=== PATIENT | female | born 1985 | race Caucasian/White ===

== ENCOUNTER 2020-11-06 11:51 | Outpatient (CLI) | payer BC, SELFPAY ==
--- NOTE | ~2020-11-06 | XR_ITS ---
XR chest 2V DATE: 11/06/2020 12:11 INDICATION: Shortness of breath. History of Covid-positive diagnosis. TECHNIQUE: PA and lateral views with gonadal shielding COMPARISON: 10/26/2018 two-view chest FINDINGS: Normal heart size. No hilar or mediastinal enlargement. No pulmonary infiltrate or consolid ation, pleural effusion or pulmonary vascular congestion or pneumothorax. Included skeletal structures are unremarkable. IMPRESSION: No active cardiopulmonary disease Reviewed, dictated and finalized at location A. [employer]
== END 2020-11-06 11:52 | disposition home or self-care (01) ==
LOC: ANHIMG 11:58
PROVIDERS: PCP Internal Medicine; Visit Provider Nurse Practitioner
DX: R06.02 Shortness of breath (principal)
CPT/HCPCS: 71046

== ENCOUNTER 2021-03-12 01:40 | Day surgery (SDC) | payer BC, SELFPAY ==
[2021-03-11 09:50] VITALS: BMI 29.9
--- NOTE | 2021-03-12 11:44 | PM.IMHP ---
H&P: HPI History of Present Illness Date/Time: 03/12/21 11:44 35 y/o with inappropriately rising hcg levels, cramping and bleeding. Last hcg was 92.5. Ultrasound exam showed an empty uterus and normal-appearing adnexa. Chief Complaint: Here for D&C Review of Systems Review of Systems: All systems reviewed & are unremarkable except as noted in HPI and below PMFSH Past Medical History Medical History Anxiety Depression Surgical History Surgical History (Updated 03/12/21 @ 12:43 by Virgil Arreaga MD) Hx of tonsillectomy Family History Family History Mother Patient's mother is in good health Social History Social History Smoking status: Never smoker Alcohol intake: never Substance use: never Substance use type: does not use Living arrangements: with family Spiritual care concerns: No Meds Home Medications and Allergies Home Medications Medication Instructions Recorded Confirmed Type sertraline 50 mg tablet 50 mg PO DAILY 10/16/20 03/12/21 History PNV [id number]-[id number]-mraod-[id number] oil 1 tablet PO DAILY 03/11/21 03/12/21 History [ with DHA-Folic Acid] Allergies Allergy/AdvReac Type Severity Reaction Status Date / Time cephalexin Allergy Unknown unknown Verified 03/12/21 13:13 erythromycin base Allergy Unknown unknown Verified 03/12/21 13:13 sulfamethizole Allergy Unknown unknown Verified 03/12/21 13:13 trimethoprim Allergy Unknown unknown Verified 03/12/21 13:13 Exam Const: Orientation/consciousness: patient oriented x3 Other: Well-developed, well-nourished female in no acute distress. Neck: Thyroid: thyroid normal Lymphatic: no lymphadenopathy noted (in neck, axilla or inguinal nodes) Resp: Effort & Inspection: normal respiratory effort Auscultation: clear to auscultation bilaterally Cardio: Rate: regular rate Rhythm: regular rhythm Heart sounds: S1 normal heart sound present and S2 normal heart sound present GI: Other: ABD: Soft, nontender, nondistended. No guarding or rebound tenderness. No hepatosplenomegaly. : General: Yes no CVA tenderness Other: External genitalia: normal female hair distribution, without lesion. Urethral meatus: no lesion, non prolapsed. Bladder: no mass, nontender Vagina: well-estrogenized, without lesion or discharge. No cystocele or rectocele. Cervix: no lesion or discharge. Uterus: small, anteverted, freely mobile, nontender Adnexa: no mass or tenderness. Anus/perineum: no lesions, nontender Back/Spine/Pelvis: Back: no CVA tenderness Skin: General skin exam: normal color and no rashes or lesions noted Neuro: General: patient oriented x3 Extrem: Other: Extremities: nontender with no edema Psych: Mental Status: mental status grossly normal Affect: normal affect Assessment and Plan Assessment and plan (1) Incomplete : Code(s): O03.4 - Incomplete spontaneous without complication Status: Acute Assessment and Plan: A: Incomplete spontaneous . P: Offered continued expectant management vs. medical vs. surgical management. She opts for the last. Specifically, offered dilation and suction curettage. She understands risks of surgery to include risks of anesthesia, risks of pain, infection, bleeding, blood products, thromboembolic phenomena and damage to adjacent structures such as bowel, bladder, ureters, blood vessels and nerves. She understands all these risks and elects to proceed with surgery.
[2021-03-12 12:01] VITALS: BP 119/78; PULSE 99; TEMP 36.8; O2SAT 100
[2021-03-12] MEDS: LACTATED RINGERS 1,000 ML 30 ML IV CONT (12:20)
--- NOTE | 2021-03-12 12:40 | P.PNAN_ITS ---
Anes - Initial Pre Proc Eval Procedure: Operation Date: 03/12/21 13:30 Proposed Procedures p Suction Dilatation and Curettage - Jason Padilla MD Date/Time: 03/12/21 12:40 Surgeon: Jason Padilla MD Pre Op Diagnosis: missed ab Patient Data Age: 35 Gender: F Height: 5 ft 4 in Weight: 79.3 kg Allergies Allergy/AdvReac Type Severity Reaction Status Date / Time cephalexin Allergy Unknown unknown Verified 03/11/21 10:03 erythromycin base Allergy Unknown unknown Verified 03/11/21 10:03 sulfamethizole Allergy Unknown unknown Verified 03/11/21 10:03 trimethoprim Allergy Unknown unknown Verified 03/11/21 10:03 Home Medications Medication Instructions Recorded Confirmed Type sertraline 50 mg tablet 50 mg PO DAILY 10/16/20 03/11/21 History PNV 631-[id number]-tduju-3-fish oil 1 tablet PO DAILY 03/11/21 03/11/21 History [ with DHA-Folic Acid] Patient hx anesthesia problems: none Family hx anesthesia problems: none PMFSH Past Medical History Medical History Anxiety Depression Surgical History Surgical History (Updated 03/12/21 @ 12:43 by Virgil Arreaga MD) Hx of tonsillectomy Family History Family History Mother Patient's mother is in good health Social History Social History Smoking status: Never smoker Alcohol intake: never Substance use: never Substance use type: does not use Living arrangements: with family Spiritual care concerns: No Anes - Eval Final PreProcedure Day of Procedure 03/12/21 12:40 Patient weight: obese Heart: regular rate and rhythm Lungs: clear to auscultation Airway: Mallampati scale class II Neurological: alert and oriented Last oral intake: >/= 8 hours ASA classification: II Anesthetic plan: proceed Anesthesia type and monitoring: general GIVS and standard monitoring Informed Consent: The patient's anesthetic plan and its attendant risks and be nefits were discussed with the patient/family/POA. Questions were solicited and answers provided to the satisfaction of the patient/family/POA.
--- NOTE | 2021-03-12 13:40 | WPDHPUPDATE1 ---
History and Physical Update Update Date/Time: 03/12/21 13:40 History and Physical has been reviewed, including an updated exam of the patient. There are NO changes in the patient's condition. Risks, benefits, and alternatives have been discussed and questions answered. Patient agrees to proceed with procedure.
--- NOTE | 2021-03-12 14:05 | PM.OP ---
Procedure Note - Brief Procedure Note - Brief Date of procedure: 03/12/21 Pre-op diagnosis: missed ab Incomplete SAB Post-op diagnosis: same Procedure performed: Dilation and suction curettage Description of procedure: The patient was taken to the operating room where she was prepared and draped in the usual sterile fashion in the dorsal lithotomy position. The bladder was drained with a red rubber catheter. A sterile speculum was placed into the vagina. The anterior lip of the cervix was grasped with a single-tooth tenaculum. Ten mL of 1% lidocaine was administered in a paracervical block. The cervix was gently dilated using Hegar dilators until an 8mm dilator could be passed. The 8mm curved tip suction curette was advanced. Suction curettage was performed and scant tissue was aspirated. Sharp curettage was then performed until a good uterine cry was noted. A final pass with the suction curette was made. The tenaculum was removed. Hemostasis was excellent. Sponge, lap, needle and instrument counts were correct. The patient was taken to the recovery room in stable condition. I was present and scrubbed for the entire procedure. Anesthesia: MAC and local (1% lidocaine paracervical block) Surgeon: Jason Padilla MD Estimated blood loss (mL): 20 Drains: No Packing: No Pathology: yes (Endometrial curettings) Complications: None Condition: stable Disposition: PACU Findings: Scant endometrial curettings.
[2021-03-12] MEDS: KETOROLAC 15 MG/ML VIAL (*BKC) IV PUSH (14:08)
[2021-03-12 14:09] VITALS: BP 100/65; PULSE 83; RESP 18; O2SAT 99
--- NOTE | 2021-03-12 14:10 | PM.PROC ---
Procedure Note - Detailed Date of procedure: 03/12/21 Pre-op diagnosis: missed ab Incomplete SAB Post-op diagnosis: same Procedure performed: Dilation and suction curettage Description of procedure: The patient was taken to the operating room where she was prepared and draped in the usual sterile fashion in the dorsal lithotomy position. The bladder was drained with a red rubber catheter. A sterile speculum was placed into the vagina. The anterior lip of the cervix was grasped with a single-tooth tenaculum. Ten mL of 1% lidocaine was administered in a paracervical block. The cervix was gently dilated using Hegar dilators until an 8mm dilator could be passed. The 8mm curved tip suction curette was advanced. Suction curettage was performed and scant tissue was aspirated. Sharp curettage was then performed until a good uterine cry was noted. A final pass with the suction curette was made. The tenaculum was removed. Hemostasis was excellent. Sponge, lap, needle and instrument counts were correct. The patient was taken to the recovery room in stable condition. I was present and scrubbed for the entire procedure. Implants: None Anesthesia: MAC and local (1% lidocaine paracervical block) Surgeon: Jason Padilla MD Estimated blood loss (mL): 20 Drains: No Packing: No Pathology: yes (endometrial curettings) Complications: None Condition: stable Disposition: PACU Findings: Scant endometrial curettings
[2021-03-12 14:30] VITALS: BP 123/89; PULSE 80; RESP 20
[2021-03-12 15:00] VITALS: BP 124/71; PULSE 64; RESP 20
[2021-03-12] MEDS: METHOTREXATE SODIUM/PF 50 MG/2 ML VIAL 46 MG IM ×2 (15:16)
[2021-03-12 15:30] VITALS: BP 124/75; PULSE 72; RESP 20
== END 2021-03-12 15:40 | disposition home or self-care (01) ==
PROVIDERS: PCP Internal Medicine; Visit Provider Obstetrics & Gynecology
PROC: (CPT 59820; principal; 2021-03-12 13:30)
DX: O02.1 Missed abortion (principal); F41.8 Other specified anxiety disorders
CPT/HCPCS: 59820; 36415; 85461; 88305; A9270; J0131; J1885; J2250; J2704; J3010; J7120; J9260

== ENCOUNTER 2021-07-31 16:00 | Outpatient (CLI) | payer BC, SELFPAY | END 2021-07-31 16:01 | disposition home or self-care (01) | LOC: ANHLAB 16:03 | PROVIDERS: PCP Internal Medicine; Visit Provider Nurse Practitioner | DX: J02.9 Acute pharyngitis, unspecified (principal) | CPT/HCPCS: 87081; 87880 ==

== ENCOUNTER 2022-05-13 16:50 | Outpatient (RCR) | payer BC, SELFPAY ==
[2022-05-13 18:44] VITALS: BP 125/71; PULSE 98
== END 2022-08-11 23:59 | disposition home or self-care (01) ==
LOC: ANHOBOP 16:50
PROVIDERS: PCP Internal Medicine; Visit Provider Obstetrics & Gynecology
DX: O26.893 Other specified pregnancy related conditions, third trimester (principal); R10.9 Unspecified abdominal pain; Z3A.30 30 weeks gestation of pregnancy
CPT/HCPCS: 59025

== ENCOUNTER 2022-05-27 09:41 | Outpatient (CLI) | payer BC, SELFPAY ==
--- NOTE | 2022-05-27 | ECG_ITS ---
Measurements Intervals [place] Rate: 79 P: -14 WA: 147 QRS: 63 QRSD: 87 T: 36 QT: 376 QTc: 433 Interpretive Statements SINUS RHYTHM NO PREVIOUS ECG AVAILABLE FOR COMPARISON Electronically Signed On 05-27-2022 10:58:02 CDT by Goyo De La Fuente M.D.
== END 2022-05-27 09:42 | disposition home or self-care (01) ==
PROVIDERS: PCP Internal Medicine; Visit Provider Obstetrics & Gynecology
DX: R55 Syncope and collapse (principal)
CPT/HCPCS: 93005

== ENCOUNTER 2022-06-05 16:02 | Observation (INO) | payer BC, SELFPAY ==
[2022-06-05] VITALS (31 sets, daily range): BP systolic 122–140; BP diastolic 74–86; PULSE 100–112; O2SAT 95–100; BMI 34.8
--- NOTE | 2022-06-05 16:46 | OBADM ---
This patient, Liz Mary, admitted to the OB room 113 for observation. Patient/family oriented to hospital policies and general routines including ID bracelet, bed and alarms, visiting hours, pain management, procedures, bathroom and other care routines, personal items, smoking policy, room service/diet, and visiting hours. Patient/Family are encouraged to report perceived risks to care and to ask questions if they do not understand what they are told or what they should do.
[2022-06-05 18:03] LABS: Appearance Urine Clear (Clear); Bilirubin Urine Negative (Negative); Color Urine Yellow (Yellow); Glucose Urine UA Negative (Negative); Ketones Urine Negative (Negative); Leukocyte Esterase Ur Negative LEU/UL (Negative); Nitrate Urine Negative (Negative); Protein Urine Trace mg/dL (Negative); Specific Grav Ur >= 1.030 (1.001-1.035); Urobilinogen Urine 0.2 mg/dL (<2.0)
[2022-06-05 18:04] LABS: Bacteria Urine Trace /hpf; Mucus Urine Few /lpf; Squamous Epithelial Cell Urine Few /hpf (Few)
[2022-06-05 18:27] LABS: Add Urine Microscopic? YES; Blood Urine Trace-Intact (Negative)
--- NOTE | 2022-07-02 15:00 | PM.OBTRLD ---
OB - Triage/Final Diagnosis Visit Information Comments/Additional reasons for admission: I have assessed the risk for this patient, Liz Mary, and determined that she would benefit from observation care. Evaluation Laboratory results: Laboratory Tests 06/05/22 17:28 Urine Color Yellow Urine Appearance Clear Urine pH 6.0 Ur Specific [place] >= 1.030 Urine Protein Trace Urine Glucose (UA) Negative Urine Ketones Negative Ur Blood (Man) Trace-intact Urine Nitrate Negative Urine Bilirubin Negative Urine Urobilinogen 0.2 Leukocyte Esterase Rfl Negative Urine RBC 3-5 H Urine WBC 7-9 H Ur Squamous Epith Cells Few Urine Bacteria Trace Urine Mucus Few H Final Diagnosis (1) Pre-syncope: Code(s): R55 - Syncope and collapse Status: Acute
== END 2022-06-05 19:04 | disposition home or self-care (01) ==
PROVIDERS: Admitting Provider Obstetrics & Gynecology; PCP Internal Medicine; Visit Provider Obstetrics & Gynecology
DX: O26.893 Other specified pregnancy related conditions, third trimester (principal); Z3A.33 33 weeks gestation of pregnancy; R55 Syncope and collapse
CPT/HCPCS: 81001; 87086; G0378; G0379

== ENCOUNTER 2022-06-15 22:45 | Observation (INO) | payer BC, SELFPAY ==
--- NOTE | 2022-06-15 22:45 | OBADM ---
This patient, Liz Mary, admitted to the OB room OB Post 115 for observation. Patient/family oriented to hospital policies and general routines including ID bracelet, bed and alarms, visiting hours, pain management, procedures, bathroom and other care routines, personal items, smoking policy, room service/diet, and visiting hours. Patient/Family are encouraged to report perceived risks to care and to ask questions if they do not understand what they are told or what they should do.
[2022-06-15 23:01] VITALS: BP 140/84; PULSE 97; TEMP 36.8
--- NOTE | 2022-06-15 23:09 | PC.NURSE ---
Updated Dr. Padilla on patient arrival to OB unit. Patient states she starting having contractions 2 hours prior to arrival at hospital. History of delivery x2. Contractions palpate mild. FHT reactive. VSS. Orders received.
[2022-06-15 23:15] VITALS: BP 145/81; PULSE 104
[2022-06-15] MEDS: NIFEdipine 10 MG CAPSULE (23:25)
[2022-06-15 23:30] VITALS: BP 123/70; PULSE 103
[2022-06-15 23:39] VITALS: BMI 34.8
[2022-06-15 23:45] VITALS: BP 103/48; PULSE 112
--- NOTE | 2022-06-16 00:35 | PC.NURSE ---
Updated Dr. Padilla on patient continued contractions q2-5min. Contractions palpated mild. Patient reports that pain has decreased since medication was given, but states she is still able to feel contractions. FHT reactive. VSS. Order received.
[2022-06-16] MEDS: DEXTROSE 5%/LACTATED RINGERS 1,000 ML 999 ML IV CONT (00:54)
[2022-06-16] MEDS: BETAMETHASONE SOD PHOS/ACETATE 30 MG/5 ML VIAL 12 MG IM (00:55)
--- NOTE | 2022-06-16 00:55 | PC.NURSE ---
Plan of care discussed with patient. Patient educated on [place] prior to administering. Patient agrees to plan of care.
[2022-06-16 01:13] LABS: Appearance Urine Clear (Clear); Bilirubin Urine Negative (Negative); Blood Urine Negative (Negative); Glucose Urine UA Negative (Negative); Ketones Urine Negative (Negative); Leukocyte Esterase Ur Trace LEU/UL (Negative); Nitrate Urine Negative (Negative); Protein Urine Negative (Negative); Urobilinogen Urine 0.2 mg/dL (<2.0)
[2022-06-16 01:17] LABS: Add Urine Microscopic? YES; Color Urine Light Yellow (Yellow)
[2022-06-16 01:19] LABS: Bacteria Urine Trace /hpf; RBC Urine 0-2 /hpf (0-2); Squamous Epithelial Cell Urine Occasional /hpf (Few); WBC Urine 0-3 /hpf
[2022-06-16 02:22] VITALS: TEMP 36.6
--- NOTE | 2022-07-08 23:56 | PM.OBTRLD ---
OB - Triage/Final Diagnosis Visit Information Comments/Additional reasons for admission: I have assessed the risk for this patient, Liz Mary, and determined that she would benefit from observation care. Evaluation Laboratory results: Laboratory Tests 06/16/22 01:00 Urine Color Light yellow Urine Appearance Clear Urine pH 7.0 Ur Specific [place] 1.010 Urine Protein Negative Urine Glucose (UA) Negative Urine Ketones Negative Ur Blood (Man) Negative Urine Nitrate Negative Urine Bilirubin Negative Urine Urobilinogen 0.2 Leukocyte Esterase Rfl Trace H Urine RBC 0-2 Urine WBC 0-3 Ur Squamous Epith Cells Occasional Urine Bacteria Trace Final Diagnosis (1) False labor: Code(s): O47.9 - False labor, unspecified Status: Acute
== END 2022-06-16 03:14 | disposition home or self-care (01) ==
PROVIDERS: Admitting Provider Obstetrics & Gynecology; PCP Internal Medicine; Visit Provider Obstetrics & Gynecology
DX: O47.03 False labor before 37 completed weeks of gestation, third trimester (principal); Z3A.34 34 weeks gestation of pregnancy
CPT/HCPCS: 81001; 96372; A9270; G0378; G0379; J0702; J7121

== ENCOUNTER 2022-06-17 11:09 | Outpatient (CLI) | payer BC, SELFPAY ==
[2022-06-17] MEDS: BETAMETHASONE SOD PHOS/ACETATE 30 MG/5 ML VIAL 12 MG IM (11:22)
== END 2022-06-17 11:10 | disposition home or self-care (01) ==
LOC: ANHOBOP 11:14
PROVIDERS: PCP Internal Medicine; Visit Provider Obstetrics & Gynecology
DX: Z34.90 Encounter for supervision of normal pregnancy, unspecified, unspecified trimester (principal); Z3A.00 Weeks of gestation of pregnancy not specified
CPT/HCPCS: 96372; J0702

== ENCOUNTER 2022-06-23 18:13 | Observation (INO) | payer BC, SELFPAY ==
--- NOTE | 2022-06-23 18:13 | OBADM ---
This patient, Liz Mary, admitted to the OB room OB Post 117 for observation. Patient/family oriented to hospital policies and general routines including ID bracelet, bed and alarms, visiting hours, pain management, procedures, bathroom and other care routines, personal items, smoking policy, room service/diet, and visiting hours. Patient/Family are encouraged to report perceived risks to care and to ask questions if they do not understand what they are told or what they should do.
[2022-06-23 18:38] VITALS: BP 124/77; PULSE 101
[2022-06-23 18:51] LABS: Appearance Urine Clear (Clear); Bilirubin Urine Negative (Negative); Blood Urine Negative (Negative); Color Urine Yellow (Yellow); Glucose Urine UA Negative (Negative); Ketones Urine Negative (Negative); Leukocyte Esterase Ur Trace LEU/UL (Negative); Nitrate Urine Negative (Negative); Protein Urine 1+ mg/dL (Negative); Specific Grav Ur 1.025 (1.001-1.035); Urobilinogen Urine 0.2 mg/dL (<2.0)
[2022-06-23 19:00] VITALS: BP 110/64; PULSE 98
[2022-06-23 19:03] LABS: Bacteria Urine Trace /hpf; Mucus Urine Rare /lpf; Squamous Epithelial Cell Urine Moderate /hpf (Few); WBC Urine 0-3 /hpf
[2022-06-23 19:07] LABS: Add Urine Microscopic? YES
--- NOTE | 2022-06-26 01:37 | P.PNOB_ITS ---
OB - Triage/Final Diagnosis Visit Information Date of evaluation: 06/23/22 Reason for evaluation: threatened labor Comments/Additional reasons for admission: I have assessed the risk for this patient, Liz Mary, and determined that she would benefit from observation care. Evaluation Laboratory results: Laboratory Tests 06/23/22 18:40 Urine Color Yellow Urine Appearance Clear Urine pH 7.0 Ur Specific [place] 1.025 Urine Protein 1+ H Urine Glucose (UA) Negative Urine Ketones Negative Ur Blood (Man) Negative Urine Nitrate Negative Urine Bilirubin Negative Urine Urobilinogen 0.2 Leukocyte Esterase Rfl Trace H Urine RBC 3-5 H Urine WBC 0-3 Ur Squamous Epith Cells Moderate H Urine Bacteria Trace Urine Mucus Rare
== END 2022-06-23 19:24 | disposition home or self-care (01) ==
PROVIDERS: Admitting Provider Student in an Organized Health Care Education/Training Program; PCP Internal Medicine; Visit Provider Student in an Organized Health Care Education/Training Program
DX: O47.03 False labor before 37 completed weeks of gestation, third trimester (principal); Z3A.35 35 weeks gestation of pregnancy
CPT/HCPCS: 81001; G0378; G0379

== ENCOUNTER 2022-06-29 13:06 | Observation (INO) | payer BC, SELFPAY ==
[2022-06-29 13:40] VITALS: BMI 35.2
--- NOTE | 2022-06-29 13:40 | OBADM ---
This patient, Liz Mary, admitted to the OB room Labor/Delivery/Recovery 102 for observation. Patient/family oriented to hospital policies and general routines including ID bracelet, bed and alarms, visiting hours, pain management, procedures, bathroom and other care routines, personal items, smoking policy, room service/diet, and visiting hours. Patient/Family are encouraged to report perceived risks to care and to ask questions if they do not understand what they are told or what they should do.
[2022-06-29 14:31] VITALS: BP 112/41; PULSE 112
[2022-06-29 14:46] VITALS: BP 120/67; PULSE 105
--- NOTE | 2022-06-29 16:13 | PM.OBTRLD ---
OB - Triage/Final Diagnosis Visit Information Date of evaluation: 06/29/22 Reason for evaluation: threatened labor Comments/Additional reasons for admission: I have assessed the risk for this patient, Liz Mary, and determined that she would benefit from observation care. Evaluation Vital signs: Vital Signs - 24 hr 06/29/22 14:31 06/29/22 14:46 Pulse Rate 112 H 105 H Blood Pressure 112/41 L 120/67
== END 2022-06-29 15:22 | disposition home or self-care (01) ==
PROVIDERS: Admitting Provider Obstetrics & Gynecology; PCP Internal Medicine; Visit Provider Obstetrics & Gynecology
DX: O47.03 False labor before 37 completed weeks of gestation, third trimester (principal); Z3A.36 36 weeks gestation of pregnancy
CPT/HCPCS: G0378; G0379

== ENCOUNTER 2022-07-06 00:58 | Observation (INO) | payer BC, SELFPAY ==
[2022-07-06 01:13] VITALS: TEMP 36.2
[2022-07-06 03:57] VITALS: BMI 34.4
--- NOTE | 2022-07-06 03:58 | OBADM ---
This patient, Liz Mary, admitted to the OB room Labor/Delivery/Recovery 108 for observation. Patient/family oriented to hospital policies and general routines including ID bracelet, bed and alarms, visiting hours, pain management, procedures, bathroom and other care routines, personal items, smoking policy, room service/diet, and visiting hours. Patient/Family are encouraged to report perceived risks to care and to ask questions if they do not understand what they are told or what they should do.
--- NOTE | 2022-07-06 04:00 | PC.NURSE ---
0345- called, informed pt came in for contractions. SVE on admission was 1.5 cm, after 1hr of walking SVE was 2 cm, pt wanted to walk for another hour and have another SVE performed before she would feel comfortable going home, no change in SVE on thrid exam. Orders received to discharge pt home.
--- NOTE | 2022-07-06 04:02 | PC.NURSE ---
0131- Pt up ambulating in [place].
--- NOTE | 2022-07-06 04:02 | PC.NURSE ---
0246-Pt on labor ball.
--- NOTE | 2022-07-06 07:59 | PM.OBTRLD ---
OB - Triage/Final Diagnosis Visit Information Date of evaluation: 07/06/22 Reason for evaluation: threatened labor Comments/Additional reasons for admission: I have assessed the risk for this patient, Liz Mary, and determined that she would benefit from observation care. Evaluation Vital signs: Vital Signs - 24 hr 07/06/22 01:13 Temperature 36.2 C L
== END 2022-07-06 04:00 | disposition home or self-care (01) ==
PROVIDERS: Admitting Provider Student in an Organized Health Care Education/Training Program; PCP Internal Medicine; Visit Provider Student in an Organized Health Care Education/Training Program
DX: O47.1 False labor at or after 37 completed weeks of gestation (principal); Z3A.37 37 weeks gestation of pregnancy
CPT/HCPCS: G0378; G0379

== ENCOUNTER 2022-07-14 08:47 | Observation (INO) | payer BC, SELFPAY ==
[2022-07-14 09:00] VITALS: BP 131/88; PULSE 100
[2022-07-14 09:02] VITALS: BMI 35.2
--- NOTE | 2022-07-14 09:05 | LDADM ---
This patient, Liz Mary, was admitted to OB Post 117 on 07/14/22 at 08:47. Plans for labor, pain management and were discussed with patient. Patient/family oriented to hospital policies and general routines including ID bracelet, bed and alarms, visiting hours, pain management, procedures, bathroom and other care routines, personal items, smoking policy, room service/diet and guest tray routines, infant security routines, and visiting hours. Patient/Family are encouraged to report perceived risks to care and to ask questions if they do not understand what they are told or what they should do. See OBIX for further documentation.
--- NOTE | 2022-08-11 11:47 | PM.OBTRLD ---
OB - Triage/Final Diagnosis Visit Information Comments/Additional reasons for admission: I have assessed the risk for this patient, Liz Mary, and determined that she would benefit from observation care. Final Diagnosis (1) False labor: Code(s): O47.9 - False labor, unspecified Status: Acute
== END 2022-07-14 09:48 | disposition home or self-care (01) ==
PROVIDERS: Admitting Provider Obstetrics & Gynecology; PCP Internal Medicine; Visit Provider Obstetrics & Gynecology
DX: O47.1 False labor at or after 37 completed weeks of gestation (principal); Z3A.38 38 weeks gestation of pregnancy
CPT/HCPCS: G0378; G0379

== ENCOUNTER 2022-07-22 04:14 | Inpatient (IN) | payer BC, SELFPAY ==
[2022-07-22] VITALS (36 sets, daily range): BP systolic 80–162; BP diastolic 21–128; PULSE 79–123; RESP 16–18; TEMP 36.6–37; O2SAT 99–100; BMI 34.4
--- NOTE | 2022-07-22 06:28 | LDADM ---
This patient, Liz Mary, was admitted to Labor/Delivery/Recovery 108 on 07/22/22 at 04:14. Plans for labor, pain management and were discussed with patient. Patient/family oriented to hospital policies and general routines including ID bracelet, bed and alarms, visiting hours, pain management, procedures, bathroom and other care routines, personal items, smoking policy, room service/diet and guest tray routines, security routines, and visiting hours. Patient/Family are encouraged to report perceived risks to care and to ask questions if they do not understand what they are told or what they should do. See OBIX for further documentation.
[2022-07-22 06:49] LABS: Basophils Absolute Auto 0.1 K/mm3 (0.0-0.1); Basophils Percent Auto 0.4 % (0.2-1.2); Eosinophils Absolute Auto 0.4 K/mm3 (0-0.3); Eosinophils Percent Auto 2.7 % (0-4.4); Hematocrit 36.3 % (37.0-47.0); Immature Granulocyte Absolute 0.18 K/mm3 (0.00-0.031); Immature Granulocyte Percent A 1.3 % (0-0.5); Lymphocytes Absolute Auto 2.69 K/mm3 (0.9-3.2); Lymphocytes Percent Auto 19.2 % (18.3-44.2); Mean Corpuscular HGB Conc 33.1 g/dl (32-36); Mean Corpuscular Hemoglobin 27.6 pg (26-34); Mean Corpuscular Volume 83.4 fl (80-100); Mean Platelet Volume 9.9 fl (7.4-10.4); Monocytes Absolute Auto 1.3 K/mm3 (0.1-0.6); Monocytes Percent Auto 9.5 % (2.6-8.5); Neutrophils Absolute Auto 9.4 K/mm3 (1.3-6.7); Neutrophils Percent Auto 66.9 % (45.5-73.1); Platelet Count Result 287 k/mm3 (150-375); Red Blood Count 4.35 M/mm3 (4.2-5.4); Red Cell Distribution Width 14.6 % (11.5-14.5)
[2022-07-22] MEDS: LACTATED RINGERS 1,000 ML 125 ML IV CONT ×2 (06:49→09:06)
[2022-07-22] MEDS: OXYTOCIN 30 UNITS/NS 500 ML 30 UNITS/500 ML BAG IV CONT (06:50)
--- NOTE | 2022-07-22 07:21 | WPDANESEPP ---
Anes - Eval Pre Procedure Procedure: Labor Epidural Date/Time: 07/22/22 07:21 Surgeon: Valerie Preop Diagnosis: Labor Pain Pre Op Diagnosis: IOL Patient Data Age: 36 Gender: F Height: 1.63 m Weight: 91 kg Last Vital Signs Pulse 110 H 07/22/22 07:15 BP 148/88 H 07/22/22 07:15 O2 Del Method Room Air 07/22/22 06:27 Allergies Allergy/AdvReac Type Severity Reaction Status Date / Time cephalexin Allergy Unknown Rash Verified 07/14/22 09:01 erythromycin base Allergy Unknown Rash Verified 07/14/22 09:01 sulfamethizole Allergy Unknown Rash Verified 07/14/22 09:01 sulfamethoxazole Allergy Unknown Rash Verified 07/14/22 09:01 trimethoprim Allergy Unknown Rash Verified 07/14/22 09:01 Home Medications Medication Instructions Recorded Confirmed Type vits no.126-ferrous fum 1 tablet PO DAILY 07/14/22 07/22/22 History 28 mg iron-folic acid 800 mcg tablet (Classic ) Laboratory Tests 07/22/22 07/22/22 06:23 06:23 WBC 14.0 K/mm3 H K/mm3 (4.5-10.0) RBC 4.35 M/mm3 M/mm3 (4.2-5.4) Hgb 12.0 g/dL g/dL (12.0-15.0) Hct 36.3 % L % (37.0-47.0) MCV 83.4 fl fl (80-100) MCH 27.6 pg pg (26-34) MCHC 33.1 g/dl g/dl (32-36) RDW 14.6 % H % (11.5-14.5) Plt Count 287 k/mm3 k/mm3 (150-375) MPV 9.9 fl fl (7.4-10.4) Immature Gran % (Auto) 1.3 % H % (0-0.5) Neut % (Auto) 66.9 % % (45.5-73.1) Lymph % (Auto) 19.2 % % (18.3-44.2) [place] % (Auto) 9.5 % H % (2.6-8.5) Eos % (Auto) 2.7 % % (0-4.4) Baso % (Auto) 0.4 % % (0.2-1.2) Lymph # (Auto) 2.69 K/mm3 K/mm3 (0.9-3.2) [place] # (Auto) 1.3 K/mm3 H K/mm3 (0.1-0.6) Eos # (Auto) 0.4 K/mm3 H K/mm3 (0-0.3) Baso # (Auto) 0.1 K/mm3 K/mm3 (0.0-0.1) Abs Immat Gran (auto) 0.18 K/mm3 H K/mm3 (0.00-0.031) Absolute Neuts (auto) 9.4 K/mm3 H K/mm3 (1.3-6.7) Absolute Nucleated RBC 0.0 K/mm3 K/mm3 (0.0-0.012) Nucleated RBC % 0.0 % % (0.0-0.2) RPR Pending : gestational age (RORY 07/27/22) Patient hx anesthesia problems: none Family hx anesthesia problems: none Results Review: All pre-operative results and documents have been reviewed as part of the pre-operative evaluation. [facility] Past Medical History Medical History Anxiety Depression Surgical History Surgical History Hx of tonsillectomy Family History Family History Mother Hypertension Daughter Down's syndrome Father Hypertension Social History Social History Smoking status: Never smoker Alcohol intake: current Substance use: never Substance use type: does not use Spiritual care concerns: No Exam Day of Procedure 07/22/22 07:21 Patient weight: overweight Heart: regular rate and rhythm Lungs: normal air movement Airway: Mallampati scale class II Neurological: alert and oriented
--- NOTE | 2022-07-22 08:40 | WPDOBADMIT ---
Obstetrics - Admit Note Admission Note: record reviewed. Additions to the history and/or subsequent changes in the physical findings follow. 36 y/o at 39 2/7 weeks gestation originally scheduled for induction of labor today. However, she presented overnight with complaint of contractions. History of rapid labor. GBS neg. AVSS NST reactive TOCO: irregular contractions ABD soft, nontender, gravid, vertex EXT nontender Cervix 4/50/-2. AROM with meconium-stained fluid. Vertex. A: IUP at term with favorable cervix, irregular contractions, not in active labor. P: She desires induction of labor. Reviewed risks, benefits, alternatives in detail. Oxytocin. Anticipate . Peds aware of meconium.
--- NOTE | 2022-07-22 10:13 | P.PCNOB_ITS ---
OB - Delivery Note Procedure Delivery date: 07/22/22 Procedure: Induction of labor with Induction method: Per Cervidil Protocol Delivery augmentation: Rupture of Membranes and Pitocin Delivery monitor: External FHT and External Uterine Route of delivery: Laceration Description: Perineal - 1st Degree Delivery repair: vicryl (3-0) Specimen: Yes (cord blood, placenta) Quantitative Blood Loss (ml): 80 Anesthesia type: Epidural Disposition: PACU Complications: None Narrative: 36 y/o at 39 2/7 weeks gestation who presented to the hospital with contractions, found not to be in labor. She elected to stay for induction of labor. Oxytocin was administered intravenously. Amniotomy was performed with return of meconium-stained fluid. She received an epidural for pain control. Her labor progressed rapidly and her cervix dilated completely. She pushed with good effort and delivered the 's head to the perineum. A nuchal cord x 2 was splinted and the body delivered. The cord was reduced and the nose and mouth were bulb suctioned. After a delay, the cord was clamped and cut. The was handed off the field. Cord blood was collected. The placenta delivered spontaneously and was grossly normal in appearance. The usual 3 vessel cord was noted. A first degree midline perineal laceration was sustained. This was reapproximated using two interrupted figure of eight sutures of 3 0 Vicryl. Excellent hemostasis resulted as did excellent reapproximation of the normal anatomy. Needle and instrument counts were correct. The patient was taken to recovery room in stable condition. The infant went to the nursery in stable condition. I was present and scrubbed for the entire delivery. [place] Baby Date of : 07/22/22 Time of : 09:55 Weeks of gestation at delivery: 39 Infant gender: Male Weight (pounds): 7 Weight (ounces): 9 presentation: vertex position: Right Occiput Anterior Placenta delivery description: Spontaneous and Normal Configuration Cord Vessel Description: 3 Vessels, Nuchal Cord (x2) and Delayed Cord Clamping score one minute: 8 score five minutes: 9
--- NOTE | 2022-07-22 10:13 | PM.OBDSVD ---
DS: Admitting Diagnosis Discharge Date 07/23/22 Admitting Diagnosis IUP at 39 weeks DS: Discharge Diagnosis Discharge Diagnosis (1) (normal spontaneous vaginal delivery): Code(s): O80 - Encounter for full-term uncomplicated delivery Status: Acute OB - DS: Summary OB Procedures : None OB Procedures Intrapartum: Spontaneous Vag Delivery OB Procedures: : None Time Spent with Patient Time attestation: Total time spent providing and/or coordinating discharge services: DS: Data Data Completed and Pending Labs on day of discharge: Labs from last 24 hours 07/22/22 07/22/22 07/22/22 06:23 06:23 06:23 WBC 14.0 H RBC 4.35 Hgb 12.0 Hct 36.3 L MCV 83.4 MCH 27.6 MCHC 33.1 RDW 14.6 H Plt Count 287 MPV 9.9 Immature Gran % (Auto) 1.3 H Neut % (Auto) 66.9 Lymph % (Auto) 19.2 Amador % (Auto) 9.5 H Eos % (Auto) 2.7 Baso % (Auto) 0.4 Lymph # (Auto) 2.69 Amador # (Auto) 1.3 H Eos # (Auto) 0.4 H Baso # (Auto) 0.1 Abs Immat Gran (auto) 0.18 H Absolute Neuts (auto) 9.4 H Absolute Nucleated RBC 0.0 Nucleated RBC % 0.0 RPR Pending Blood Type B Positive Antibody Screen Negative Discharge Plan Discharge Attending physician on discharge: Jason Padilla Discharging Clinician: Jason Padilla Patient Disposition: Home, Self-Care Activity: pelvic rest Diet: regular Discharge Instructions: Call or return if temperature above 100.4? F, increased abdominal pain, increased vaginal bleeding or any new problems. Stand Alone Forms: General Discharge Information Follow-up/Referrals: Jason Padilla MD [Physician] - 6 Weeks Discharge Medications: New ibuprofen 600 mg tablet 600 mg PO Q6H PRN (Reason: cramps) Qty: 30 0RF Continued Classic 28 mg iron- 800 mcg Tablet 1 tablet PO DAILY Date of admission: 07/22/22 04:14 Primary Care Provider: Johnson Silver Admitting Provider: Jason Padilla Attending physician on admission: Jason Padilla Condition: Stable
[2022-07-22] MEDS: OXYTOCIN 30 UNITS/NS 500 ML 30 UNITS/500 ML BAG 125 UNITS IV CONT (10:26)
[2022-07-22 12:10] LABS: Rapid Plasma Reagin Non-Reactive (NonReactive)
--- NOTE | 2022-07-22 12:24 | PC.NURSE ---
Patient transferred to post room #285 via wheel chair. Support person present. Oriented to unit, room, information board, rooming in, admission packet and security measures. Patient verbalizes understanding.
[2022-07-22] MEDS: ACETAMINOPHEN 325 MG TABLET 650 MG PO (14:36)
--- NOTE | 2022-07-22 16:13 | PC.NURSE ---
[id number] Introductions were made, then consulted with patient to assess needs related to . Mother led the conversation with her?plans to feed?her and the?experience so far. Mother's history has not been overwhelmingly successful. Encouraged understanding of the benefits of skin to skin (unwrapping and placing vertically on her chest), responsive feeding and how to watch for early feeding signs, frequency of feeding on demand about every 8-12 times in 24 hours (every 2-3 hours), milk production, duration of feeding, signs of adequate intake/output and how to record on the feeding sheet. Resources provided for inpatient and outpatient services using a resource guide, latching QR code, and the mom/baby guide. Mother voiced understanding of information with appreciation and will call if there is a request for assistance.
[2022-07-22] MEDS: IBUPROFEN 600 MG TABLET PO (17:10)
[2022-07-23 03:05] VITALS: BP 126/80; PULSE 82; RESP 18; TEMP 36.4
[2022-07-23] MEDS: IBUPROFEN 600 MG TABLET PO ×2 (03:06→09:20)
[2022-07-23] MEDS: ACETAMINOPHEN 325 MG TABLET 650 MG PO (03:08)
[2022-07-23 05:25] LABS: Hematocrit 33.5 % (37.0-47.0); Hemoglobin 10.8 g/dL (12.0-15.0)
[2022-07-23 08:15] VITALS: BP 130/80; PULSE 98; RESP 16; TEMP 36.8; O2SAT 99
--- NOTE | 2022-07-23 08:49 | WPDANLDPN2 ---
Anes-Prog Note L&D Date/Time: 07/23/22 08:49 Comfortable throughout: labor and delivery Neuraxial method: epidural Epidural/Spinal procedure site: clean & non-tender Neuro status: Neuro function grossly intact. Cardiovascular status: normal Respiratory status: normal Airway patency: baseline Mental status: baseline Post-Op hydration status: normal Vital Signs: Last Vital Signs Temp 36.4 C 07/23/22 03:05 Pulse 82 07/23/22 03:05 Resp 18 07/23/22 03:05 BP 126/80 07/23/22 03:05 Pulse Ox 99 07/22/22 12:35 O2 Del Method Room Air 07/23/22 04:39 Pain score (VAS): 1 I/O: Intake & Output 07/22/22 07/23/22 07/23/22 23:59 07:59 15:59 Intake Total 240 Balance 240 Patient feedback: Patient satisfied with anesthetic care.
[2022-07-23] MEDS: DOCUSATE SODIUM 100 MG CAPSULE PO (09:20)
[2022-07-23] MEDS: MULTIVIT/MIN/PREN/FOL AC/IRON TABLET 1 TAB PO (09:20)
--- NOTE | 2022-07-23 12:06 | PC.NURSE ---
Patient viewed the discharge video Mother & Baby Care, The First Two Weeks . Patient was given the opportunity and encouraged to ask questions. Patient verbalized understanding of information shared and has been given the mother/baby guide for home reference.
--- NOTE | 2022-07-23 14:08 | PC.NURSE ---
1041 - Called to assist while working with OP appt. Referred patient care back to the primary RN.
--- NOTE | 2022-07-23 14:20 | PC.NURSE ---
[id number] Consulted with patient to assess needs related to . Mother led conversation with her experience with feeding baby so far and states that latch is tender at first, then gets better and there has not been any additional injury to the left nipple that has a visible bruise down the middle of the nipple from a prior feeding. Mother states the feedings improved after the primary RN assisted her with a better position. Mother voiced understanding of the education shared, calling for assistance if the does not latch or if there is discomfort with . Primary RN is present in the room.
--- NOTE | 2022-07-23 14:28 | PM.OBPNVD ---
OB - PN: Subj Subjective Date/time seen: 07/23/22 14:28 Narrative: Pain OK. Desires circumcision for son. Would like to go home. OB - PN: Obj Data Labs CBC & Chem 7: 07/23/22 03:04 Labs: Laboratory Results - last 24 hr 07/23/22 03:04 Hgb 10.8 L Hct 33.5 L OB - PN A/P Plan Comments: A: PPD#1, doing well. P: Reviewed circ. Home to f/u 6 weeks. Exam Psych: Other: AVSS ABD soft, nontender, fundus firm EXT nontender
--- NOTE | 2022-07-23 15:36 | PC.NURSE ---
[id number] Consulted for latch assessment. Mother verbalizes she is able to independently latch infant with appropriate positioning/alignment. She denies any nipple discomfort and is responsively . Infant is currently meeting outcomes for weight, output, jaundice and feeding frequencies of 8-12 times in 24 hours. is latched optimally to the left breast using cross cradle positioning. Mother states she is confident to continue effectively her at home or when to call for assistance and denies any additional assistance or education at this time. Reinforced understanding of milk production, transition of milk, signs of adequate intake, prevention/relief of engorgement, responsive after visualizing feeding cues, the different methods of stimulating to breastfeed 2-3 hours after the start of the last feeding, community resources, medication information reviewed per [facility] and when to call a provider using the resource of the mom and baby guide. Mother voiced understanding of the education shared. Reported to the primary RN.
[2022-07-24 11:54] VITALS: BP 140/84; PULSE 76; RESP 20; TEMP 36.8; O2SAT 100
== END 2022-07-23 15:52 | disposition home or self-care (01) | DRG 807 ==
LOC: ANHLDR 04:19 → ANHOB2 12:28
PROVIDERS: Admitting Provider Obstetrics & Gynecology; PCP Internal Medicine; Visit Provider Obstetrics & Gynecology
DX: O69.81X0 Labor and delivery complicated by cord around neck, without compression, not applicable or unspecified (principal); Z37.0 Single live birth; O70.0 First degree perineal laceration during delivery; O77.0 Labor and delivery complicated by meconium in amniotic fluid; Z3A.39 39 weeks gestation of pregnancy
CPT/HCPCS: 36415; 85014; 85018; 85025; 86592; 86850; 86900; 86901; 88307; A9270; J2590; J2795; J7120

== ENCOUNTER 2022-09-04 12:59 | Outpatient (CLI) | payer BC, SELFPAY ==
--- NOTE | ~2022-09-04 | US_ITS ---
EXAMINATION: US venous doppler [facility] DATE: 09/04/2022 13:52 INDICATION: Left lower limb edema. TECHNIQUE: Grayscale ultrasound images without and with compression and Doppler ultrasound images of the left lower extremity veins were obtained. COMPARISON: None. FINDINGS: The visualized portions of left common femoral vein, profunda (deep) femoral vein, femoral vein, popl iteal vein, peroneal veins, posterior tibial veins, and greater saphenous vein outflow are patent. IMPRESSION: 1. No deep venous thrombosis. Reviewed, dictated and finalized at location A.
== END 2022-09-04 13:00 | disposition home or self-care (01) ==
LOC: ANHIMG 13:05
PROVIDERS: PCP Internal Medicine; Visit Provider Clinical Nurse Specialist
DX: M79.89 Other specified soft tissue disorders (principal)
CPT/HCPCS: 93971

== ENCOUNTER 2023-05-18 05:29 | Emergency (ER) | payer BC, SELFPAY ==
--- NOTE | ~2023-05-18 | US_ITS ---
US breast RT limited DATE: 05/18/2023 07:46 INDICATION: Redness and pain of right breast. Patient is breast-feeding. TECHNIQUE: Real-time imaging targeted to area of complaint of pain, redness, including 10:00-12:00, s ubareolar area. COMPARISON: None FINDINGS: No suspicious mass or abnormal fluid collection is detected. No cyst is noted. There is an approximately 1.2 x 1.6 x 1.4 cm lymph node in the right axilla. IMPRESSION: BI-RADS Category 2: Benign No evidence of abnormal mass or abscess is detected Reviewed, dictated and finalized at Location A. Reviewed, dictated and finalized at location A.
[2023-05-18 05:33] VITALS: BP 134/64; PULSE 119; RESP 20; TEMP 36.8; O2SAT 98
--- NOTE | 2023-05-18 05:43 | PC.NURSE ---
Pt states she has been breast feeding for about 10 months and has not had this issue before. Pt denies having this feeling before and also denies having a previous clogged duct. Pt states she has been having fever and chills for a couples. Pt states she has been taking Advile for her pain. pt states she is having pain in her right breast. Pt states has does not have a decreased milk supply to the right breast however she has an increased milk supply. Pt states she has not passed out but has the weak feeling. Pt denies chest pain or shortness of breath. Pt states she does not have trouble breast feeding but it is painful. This RN did not note any blistering or redness to the right breast. Pt states her last time feeding was at 0400.
--- NOTE | 2023-05-18 05:58 | ECG_ITS ---
Measurements Intervals [place] Rate: 106 P: 45 AK: 164 QRS: 29 QRSD: 98 T: 25 QT: 335 QTc: 446 Interpretive Statements SINUS TACHYCARDIA OTHERWISE NORMAL ECG COMPARED TO ECG 05/27/2022 10:15:37 SINUS TACHYCARDIA NOW PRESENT Electronically Signed On 05-18-2023 15:48:18 CDT by Jh Mendes M.D.
--- NOTE | 2023-05-18 05:59 | ED.GENADULT ---
HPI - General Adult General Chief complaint: Fever <Art Vasquez MD - Last Filed: 05/18/23 07:18> Stated complaint: fever? keep passing out, weak <Art Vasquez MD - Last Filed: 05/18/23 07:18> Time Seen by Provider: 05/18/23 05:42 <Art Vasquez MD - Last Filed: 05/18/23 07:18> History of Present Illness HPI narrative: this is a 37-year-old female presenting ED with chief complaint of fever and weakness. Patient says that yesterday while at her in-laws dinner she started to get chills. She then felt weak and had some dizziness when she stood up. she knows she has pain over her right breast and some pain while . She has never had mastitis or abscess before. She denies cough congestion, nausea vomiting diarrhea, chest pain, difficulty breathing, abdominal pain or urinary symptoms. <Art Vasquez MD - Last Filed: 05/18/23 07:18> Related Data Home medications: Home Medications Medication Instructions Recorded Confirmed bupropion HCl 150 mg 24 hr tablet, mg PO 05/18/23 extended release <Art Vasquez MD - Last Filed: 05/18/23 07:18> Allergies/adverse reactions: Allergies Allergy/AdvReac Type Severity Reaction Status Date / Time cephalexin Allergy Unknown Rash Verified 05/18/23 05:38 erythromycin base Allergy Unknown Rash Verified 05/18/23 05:38 sulfamethizole Allergy Unknown Rash Verified 05/18/23 05:38 sulfamethoxazole Allergy Unknown Rash Verified 05/18/23 05:38 trimethoprim Allergy Unknown Rash Verified 05/18/23 05:38 <Art Vasquez MD - Last Filed: 05/18/23 07:18> [facility] Past Medical History Medical History: Medical History Anxiety Depression <Art Vasquez MD - Last Filed: 05/18/23 07:18> Surgical History Surgical History: Surgical History Hx of tonsillectomy <Art Vasquez MD - Last Filed: 05/18/23 07:18> Family History Family History: Family History Mother Hypertension Daughter Down's syndrome Father Hypertension <Art Vasquez MD - Last Filed: 05/18/23 07:18> Social History Social History: Social History Smoking status: Never smoker Alcohol intake: never Substance use: never Substance use type: does not use Living arrangements: with family Spiritual care concerns: No <Art Vasquez MD - Last Filed: 05/18/23 07:18> Exam Narrative: APPEARANCE: No apparent distress. Patient is well-appearing Head: atraumatic. EYES: EOMI, NOSE: Atraumatic NECK: Trachea midline Breast exam: Wedge like area of erythema on the right breast around 9:00 a.m. without an area of fluctuance RESPIRATORY: No increased rate of breathing CARDIOVASCULAR: RRR, ABDOMINAL: Non-distended MUSCULOSKELETAl: No obvious deformities NEURO: Alert. Moving 4/4 extremities SKIN:: Warm, dry. Normal color PSYCHIATRIC: Normal affect <Art Vasquez MD - Last Filed: 05/18/23 07:18> Course Course Emergency Course: 714: Signed out to Dr. Lau pending R breast Ultrasound. <Art Vasquez MD - Last Filed: 05/18/23 07:18> 0715: Signed out to Dr. Lau pending R breast Ultrasound. 1005: Green top hemolyzed. Previous physician did not feel necessary to redraw. Patient clinically looks well. No abscess on ultrasound. Leukocytosis noted. Discussed case with Dr. Le Diaz who is on-call for patient's primary OB. Recommends follow-up in 2 days with outpatient dicloxacillin. Patient verbalized understanding of treatment plan and is comfortable. <Chele Castorena MD - Last Filed: 05/18/23 10:08> Vital Signs Vital signs: Vital Signs Temperature 98.3 F 05/18/23 05:33 Pulse Rate 119 H 05/18/23 05:33 Respiratory Rate 20 05/18/23 05:33 Blood Pressure 134
[2023-05-18 06:22] LABS: Basophils Absolute Auto 0.1 K/mm3 (0.0-0.1); Basophils Percent Auto 0.6 % (0.2-1.2); Eosinophils Absolute Auto 0.3 K/mm3 (0-0.3); Eosinophils Percent Auto 1.1 % (0-4.4); Hematocrit 38.7 % (37.0-47.0); Hemoglobin 12.9 g/dL (12.0-15.0); Immature Granulocyte Absolute 0.19 K/mm3 (0.00-0.031); Immature Granulocyte Percent A 0.8 % (0-0.5); Immature Platelet Fraction Pct 1.7 % (0.9-11.2); Lymphocytes Absolute Auto 1.38 K/mm3 (0.9-3.2); Lymphocytes Percent Auto 5.9 % (18.3-44.2); Mean Corpuscular HGB Conc 33.3 g/dl (32-36); Mean Corpuscular Hemoglobin 28.6 pg (26-34); Mean Corpuscular Volume 85.8 fl (80-100); Mean Platelet Volume 10.1 fl (7.4-10.4); Monocytes Absolute Auto 1.7 K/mm3 (0.1-0.6); Monocytes Percent Auto 7.4 % (2.6-8.5); Neutrophils Absolute Auto 19.5 K/mm3 (1.3-6.7); Neutrophils Percent Auto 84.2 % (45.5-73.1); Platelet Count Result 332 k/mm3 (150-375); Red Blood Count 4.51 M/mm3 (4.2-5.4); Red Cell Distribution Width 13.4 % (11.5-14.5); White Blood Count 23.2 K/mm3 (4.5-10.0)
[2023-05-18] MEDS: ACETAMINOPHEN 500 MG TABLET 1000 MG PO (06:30)
[2023-05-18] MEDS: SODIUM CHLORIDE 0.9% IV 2,000 ML 999 ML IV CONT (06:34)
[2023-05-18 06:55] LABS: Influenza A QL RT-PCR Negative (Negative); Influenza B QL RT-PCR Negative (Negative); RSV RNA, RT-PCR Negative (Negative); SARS-CoV-2 RNA PCR Negative (Negative)
--- NOTE | 2023-05-18 07:15 | PC.NURSE ---
pt resting on stretcher. ns infusting wide open without difficulty. waiting po antibiotics from pharmacy. mother at bedside.
[2023-05-18] MEDS: DICLOXACILLIN SODIUM 250 MG CAPSULE 500 MG PO (08:26)
--- NOTE | 2023-05-18 08:26 | PC.NURSE ---
antibiotic given po. pt to be montored due to small cross sensitivity to keflex which pt is allergic to.
[2023-05-18 10:35] VITALS: BP 113/79; PULSE 99; RESP 16
== END 2023-05-18 10:35 | disposition home or self-care (01) ==
PROVIDERS: Emergency Provider Emergency Medicine; PCP Internal Medicine
DX: O91.23 Nonpurulent mastitis associated with lactation (principal); Z20.822 Contact with and (suspected) exposure to COVID-19; F41.9 Anxiety disorder, unspecified; F32.A Depression, unspecified
CPT/HCPCS: 36415; 76642; 85025; 85055; 87637; 93005; 96360; 96361; 99284; A9270; J7030

== ENCOUNTER 2024-06-09 10:08 | Outpatient (CLI) | payer BC, SELFPAY ==
[2024-06-09 19:57] LABS: Alanine Aminotransferase 21 U/L (6-35); Albumin Level 4.9 g/dL (3.5-5.1); Alkaline Phosphatase 68 U/L (38-126); Anion Gap 13 mmol/L (4-12); Aspartate Amino Transferase 48 U/L (14-36); Bilirubin,Total 0.7 mg/dL (0.2-1.3); Blood Urea Nitrogen 11 mg/dL (7-17); Calcium 9.2 mg/dL (8.4-10.2); Carbon Dioxide 26 mmol/L (22-30); Chloride 101 mmol/L (98-107); Estimated Glomerular Filt Rate > 60; Glucose 92 mg/dL (65-110); Potassium 3.9 mmol/L (3.4-5.0); Sodium 140 mmol/L (137-145)
[2024-06-09 20:06] LABS: Basophils Absolute Auto 0.1 K/mm3 (0.0-0.1); Basophils Percent Auto 1.1 % (0.2-1.2); Eosinophils Absolute Auto 0.2 K/mm3 (0-0.3); Eosinophils Percent Auto 2.1 % (0-4.4); Hematocrit 40.5 % (37.0-47.0); Hemoglobin 13.2 g/dL (12.0-15.0); Immature Granulocyte Absolute 0.03 K/mm3 (0.00-0.031); Immature Granulocyte Percent A 0.4 % (0-0.5); Lymphocytes Absolute Auto 3.13 K/mm3 (0.9-3.2); Mean Corpuscular HGB Conc 32.6 g/dl (32-36); Mean Corpuscular Hemoglobin 28.6 pg (26-34); Mean Corpuscular Volume 87.9 fl (80-100); Mean Platelet Volume 9.3 fl (7.4-10.4); Monocytes Absolute Auto 0.6 K/mm3 (0.1-0.6); Monocytes Percent Auto 7.5 % (2.6-8.5); Neutrophils Absolute Auto 4.2 K/mm3 (1.3-6.7); Neutrophils Percent Auto 50.9 % (45.5-73.1); Platelet Count Result 428 k/mm3 (150-375); Red Blood Count 4.61 M/mm3 (4.2-5.4); Red Cell Distribution Width 13.2 % (11.5-14.5); White Blood Count 8.2 K/mm3 (4.5-10.0)
== END 2024-06-09 10:09 | disposition home or self-care (01) ==
LOC: ANHGOSHLAB 10:09
PROVIDERS: PCP Nurse Practitioner; Visit Provider Nurse Practitioner
DX: R53.83 Other fatigue (principal); R55 Syncope and collapse
CPT/HCPCS: 36415; 80053; 84443; 85025

== ENCOUNTER 2025-02-07 10:01 | Emergency (ER) | payer BC, SELFPAY ==
--- NOTE | 2025-02-07 10:13 | ED_ITS ---
HPI - URI/Sore Throat General Chief Complaint: Upper Respiratory Infection Stated Complaint: flu like symptoms Time Seen by Provider: 02/07/25 10:06 Source: patient Mode of arrival: ambulatory Limitations: no limitations History of Present Illness HPI Narrative: Gretel is a 39-year-old female patient presenting to the clinic today with complaints of flu-like symptoms. She reports she has had symptoms for 4-5 weeks of sinus pressure, nasal congestion, cough, and chest congestion. States she started with some body aches over the last 2 days. Denies any chest pain or shortness of breath. Patient is requesting COVID, flu, and strep testing as her kids just began with symptoms over the last 1-2 days. MD elicited complaint: cough, rhinorrhea, nasal congestion and sinus pain Related Data Home Medications ?Medication ?Instructions ?Recorded ?Confirmed ?Last Taken ?Type mecobalamin (vitamin B12) 2 tablet PO DAILY 06/09/24 06/09/24 Unknown History albuterol sulfate 90 mcg/actuation inhalation 02/07/25 Unknown History aerosol inhaler bupropion HCl 300 mg 24 hr tablet, mg PO 02/07/25 Unknown History extended release Allergies Allergy/AdvReac Type Severity Reaction Status Date / Time cephalexin Allergy Unknown Rash Verified 02/07/25 10:09 erythromycin base Allergy Unknown Rash Verified 02/07/25 10:09 sulfamethizole Allergy Unknown Rash Verified 02/07/25 10:09 sulfamethoxazole Allergy Unknown Rash Verified 02/07/25 10:09 trimethoprim Allergy Unknown Rash Verified 02/07/25 10:09 Review of Systems Review of Systems: Pertinent positives per HPI. Patient denies any fever, chills, rash, visual changes, dizziness, shortness of breath, chest pain, palpitations, nausea, vomiting, diarrhea, constipation, abdominal pain, or any urinary issues. [facility] Past Medical History Medical History (Updated 02/07/25 @ 10:27 by Jimenez Farias APRN) Screening for lipoid disorders Screening for endocrine disorder Left leg swelling Tuberculosis screening (normal spontaneous vaginal delivery) False labor Pre-syncope Sore throat Postoperative pain Incomplete Anxiety COVID-19 Depression Tonsillar hypertrophy MARK ANTHONY (obstructive sleep apnea) Snoring Surgical History Surgical History Hx of tonsillectomy Family History Family History Mother Hypertension Daughter Down's syndrome Father Hypertension Social History Social History Smoking status: Never smoker Alcohol intake: never Substance use: never Substance use type: does not use Living arrangements: with family Spiritual care concerns: No Comments At the time of my signature, I reviewed and agree with the nursing past medical, surgical, social, and family history. There is no relevant family history pertinent to the patient complaint. Exam Narrative: General: Well-developed, well nourished, in no apparent distress Head: Normocephalic, atraumatic Eyes: Pupils equally round and reactive to light bilaterally, EOM intact, sclera and conjunctive clear, no discharge, lids normal Ears: TMs intact and clear, ear canals clear, no drainage, grossly hearing normal. Nose: Nares patent, yellow nasal discharge, moderate inflammation, maxillary sinus tenderness. Mouth: Oral pharynx red without lesions or masses, good dentition, MMM. Postnasal drip Neck: Supple, trachea midline, no enlargement of anterior or posterior cervical nodes, no thyroid masses or goiter palpable. Cardio: Regular rate and rhythm, s1 and s2 normal, no murmur appreciated. Resp: Clear to auscultation bilaterally, no rhonchi, rales, wheezing or rubs Course Course Emergency Course: Portions of this record may have been created with voice recognition software. Level of Care: Express Care Visit Vital Signs Vital signs: Vital Signs Temperature 36.6 C 02/07/25 10:19 Pulse Rate 116 H 02/07/25 10:19 Respiratory Rate 18 02/07/25 10:19 Blood Pressure 126/89 02/07/25 10:19 Pulse Oximetry 100 02/07/25 10:19 Temperature 36.6 C 02/07/25 10:19 Pulse Rate 116 H 02/07/25 10:19 Respiratory Rate 18 02/07/25 10:19 Blood Pressure 126/89 02/07/25 10:19 Pulse Oximetry 100 02/07/25 10:19 Vital signs reviewed MDM - URI/Sore Throat MDM Narrative Medical decision making narrative: At the time of visit patient is resting comfortably on the exam table. Patient appears to be nontoxic. Labs: COVID, influenza, and strep test were all performed. COVID and strep test were negative. Influenza a was positive Plan: Patient has acute sinusitis-her symptoms have been going on for 5 weeks. Will treat with Augmentin and prednisone. Patient tested positive for influenza A in the clinic today as well. Supportive measures were discussed with the patient and they voiced understanding discharge instructions and agrees to treatment plan. Return precautions reviewed Differential Diagnosis Differential diagnosis: Likely upper respiratory infection, otitis media, sinusitis, viral infection, bronchitis, influenza, pharyngitis and other (COVID) Discharge Plan Discharge Clinical Impression: Influenza A Acute sinusitis Qualifiers: Sinusitis location: maxillary Recurrence: non-recurrent Qualified Code(s): J01.00 - Acute maxillary sinusitis, unspecified Patient Disposition: Home, Self-Care Condition: Stable Instructions: Antibiotic Form, Sinusitis (ED), Influenza (ED) Additional Instructions: Influenza A testing was positive in the clinic today. COVID and strep test were negative. Take prescription medications only as prescribed-prednisone and Augmentin Increase fluids and stay well hydrated Tylenol/motrin for pain/fever Flonase and OTC antihistamines as directed Vicks vapor rub to open sinuses Sinus rinses for congestion Cepacol spray, cough drops, throat lozenges, warm tea with honey/lemon, gargle salt water to soothe throat BRAT diet for diarrhea Clear liquids x 24 hours then advance as tolerated for nausea/vomiting Go to the ED if you develop a worsening in your condition- high fever not controlled by Tylenol or Motrin, dehydration, weakness, lethargy, shortness of breath, or chest pain. Follow up with your PCP in 3-5 days if symptoms persist. Patient Language: [place] Citizen Prescriptions: New amoxicillin-pot clavulanate 875-125 mg tablet 1 tablet PO Q12H 10 Days Qty: 20 0RF prednisone 20 mg tablet 40 mg PO DAILY 5 Days Qty: 10 0RF No Action albuterol sulfate 90 mcg/actuation HFA aerosol inhaler INHALATION bupropion HCl 300 mg tablet extended release 24 hr PO mecobalamin (vitamin B12) 2 tablet PO DAILY cholecalciferol (vitamin D3) 1,250 mcg (50,000 unit) tablet 1,250 mcg PO WEEKLY Qty: 8 1RF Follow-up/Referrals: Johnson Silver, DO [Primary Care Provider] - Stand Alone Forms: Work/School Release IP Time of Disposition: 10:28 Quality NIHSS Nursing Documentation ED NIHSS nursing documentation: reviewed/agree
[2025-02-07 10:19] VITALS: BP 126/89; PULSE 116; RESP 18; TEMP 36.6; O2SAT 100
[2025-02-07 10:39] LABS: EDCOVIDSCREEN Negative (Negative); EDINFLUASCREEN Positive (Negative); EDINFLUBSCREEN Negative (Negative); EDSTREPNEGPOS1 Negative (Negative)
== END 2025-02-07 10:35 | disposition home or self-care (01) ==
PROVIDERS: Emergency Provider Nurse Practitioner Family; PCP Internal Medicine
DX: J10.1 Influenza due to other identified influenza virus with other respiratory manifestations (principal); J01.00 Acute maxillary sinusitis, unspecified; Z20.822 Contact with and (suspected) exposure to COVID-19; Z86.16 Personal history of COVID-19
CPT/HCPCS: 87081; 87426; 87804; 87880; 99213; G0463

== ENCOUNTER 2025-04-27 21:54 | Emergency (ER) | payer BC, SELFPAY ==
[2025-04-27] VITALS (8 sets, daily range): BP systolic 119–150; BP diastolic 80–96; PULSE 88–95; RESP 15–24; TEMP 36.7; O2SAT 99–100
--- NOTE | ~2025-04-27 | XR_ITS ---
XR chest 2V Ordering provider: Kamran Hurtado MD History: 39 years Female with . chest pain . Comparison: November 06, 2020 FINDINGS: MEDIASTINUM: The cardiac silhouette is not enlarged. LUNGS: No infiltrates, effusions or pneumothorax. OTHER: No free air under the diaphragm. IMPRESSION: No acute cardiopulmonary pathology. Reviewed, dictated and finalized at location A.
--- NOTE | 2025-04-27 21:56 | ECG_ITS ---
Test Date: 2025-04-27 22:00:27 Measurements Intervals [place] Rate: 102 P: 42 OR: 152 QRS: 38 QRSD: 94 T: 38 QT: 355 QTc: 464 Interpretive Statements SINUS TACHYCARDIA POSSIBLE LEFT ATRIAL ENLARGEMENT [-0.1mV P WAVE IN V1/V2] INCOMPLETE RIGHT BUNDLE BRANCH BLOCK [90+ ms QRS DURATION, TERMINAL R IN V1/V2, 40+ ms S IN I/aVL/V4/V5/V6] No previous ECG available for comparison Electronically Signed On 04-28-2025 15:04:35 CDT by Renee Howard M.D.
--- OUTSIDE RECORDS SUMMARY | 2025-04-27 21:56 | XMS_ITS | Encounter Summary ---
Author Organization [facility] Address [address] [place] [address] Phone Care Team Providers Care Financial Sales Representative Name Role Phone Johnson Silver DO Primary Care Provider Encounter Details Date Type Department Care Team (Late st Contact Info) Description 12/04/[address] [facility] [address] [place] [phone] Shakeel Snowden MD [address] [place] [address] [place] [address] Encounter for screening for COVID-19 Social History Tobacco Use Types Packs/Day Years Used Date Smoking Tobacco: Never Smokeless Tobacco: Never Comments Unknown Sex and Gender Information Value Date Recorded Sex Assigned at Not on file Legal Sex Female 8:42 AM CDT Gender Identity Not on file Sexual Orientation Not on file documented as of this encounter Plan of Treatment Not on file documented as of this encounter Procedures Procedure Name Priority Date/Time Associated Diagnosis Comments SARS-COV-2 BY MOLECULAR Routine 12/04/2022 9:20 AM VOCATIONAL GUIDANCE COUNSELOR Encounter for screening for COVID-19 documented in this encounter Results * SARS-COV-2 BY MOLECULAR (12/04/2022 9:20 AM VOCATIONAL GUIDANCE COUNSELOR) SARSCOV2 NOT DETECTED (Referen ce Range for this test is Not Detected ) [facility] FAST DX 12/05/2022 12:19 AM VOCATIONAL GUIDANCE COUNSELOR [facility] Comment:This test was perfor med by a RT-PCR method. Other Non-Phlebotomy Collection / Unknown 12/04/2022 9:20 AM VOCATIONAL GUIDANCE COUNSELOR 12/04/2022 11:50 AM VOCATIONAL GUIDANCE COUNSELOR Narrative [facility] - 12/05/2022 12:19 AM VOCATIONAL GUIDANCE COUNSELOR Authorized Fact Sheets about this test for providers and patients are available at: https://www.fda.gov/medical-devices/kgazqlrif-tphxuedaud-eriulwn-devices/emergen -us e-authorizations us Shakeel Snowden MD MICROBIOLOGY - GENERAL ORDERAB LES Final Result [facility] [address] [place] [address], documented in this encounter Visit Diagnoses Diagnosis Encounter for screening for COVID-19 documented in this encounter Additional Health Concerns Infection Onset Date Last Indicated Resolved Time COVID - 19 12/04/2022 12/04/2022 12/14/2022 12:1 7 AM VOCATIONAL GUIDANCE COUNSELOR documented as of this encounter Care Teams Financial Sales Representative Relationship Specialty Start Date End Date Johnson Silver DO [address] [facility] [place] [address] PCP - General Internal Medicine 05/24/21 documented as of this encounter
--- OUTSIDE RECORDS SUMMARY | 2025-04-27 21:56 | XMS_ITS | Clinical Summary ---
Author Organization [facility] Address [address] [place] [address] Care Team Providers Care Mission Support Specialist Name Role Phone Johnson Silver DO Primary Care Provider Source Comments [facility],non-owned Affiliates and Associated Physician Practices is amultiple site organization consisting of ambulatory clinics and hospital sitesin [place], [place], [place] and [place]. This disclosure is being madepursuant to the Care Everywhere program and may not contain all information available regarding this patient. Last updated 18.[facility] Allergies Active Allergy Reactions Criticality Noted Date Comments Erythromycin 04/13/2017 Cephalexin 04/13/2017 Sulfamethoxazole W-Trimethoprim 03/30 Medications * Be aware that medications may not be up to date on this document. Alwaysverify current medications with the patient. sertraline (ZOLOFT) 50 MG tablet Take 50 mg by mouth once daily 0 9 Active cetirizine (ZYRTEC) 10 MG tablet Take 10 mg by mouth once daily as needed for Allergies Active Ergocalciferol (VITAMIN D2 PO) Take 400 Units by mouth once daily 6 Active Active Problems Patient Care Coordination No te Formatting of this note migh t be different from the original. Please see care plan in problem list. Problem Noted Date Diagnosed Date Depression screening - Initial at [facility] on 06.16.20 19 06/16/2019 Overview (07/28/2019): 06/16/2019 Barbie Odom was screened for depression using the [place] Depression Scale (EPDS) at her [facility] initial evaluation on 06/16/2019. Her initial score at baseline was 3. Based off of her score of 3, Barbie does not warrant follow up. Patient will continue to be screened throughout , at intervals no closer than two weeks, for continued surveillance and early identification of depression until delivery. Patient reports mental health history. Diagnosis of anxiety. Integrated screen positive for trisomy 21 05/17/2019 Abnormal chromosomal and gen etic finding on screening of mother 04/19/2019 Resolved Problems Problem Noted Date Diagnosed Date Resolved Date abnormality in pregnan cy - Trisomy 21 per NIPT 05/03/2019 09/13/2019 Overview (07/28/2019): Images from the original note were not included. [facility] PATIENT--PLEASE CALL [phone] (ex 2) IF TRIAGED OR ADMITTED Care Provider: Dr. Padilla [facility] consultants involved: RN-Raimundo; Alton-Amado; Cardiology-Patrice; Footprints-Sister Barbi Middleton; Trisomy 21 Team-Ilda Barry Diagnosis: Trisomy 21 per NIPT follow up: per Cardiology 06.16: Normal echocardiogram. Given the possibility of persistent PDA, ASD or small ventricular defects in children with Trisomy 21, would recommend follow-up echocardiogram either prior to discharge or as an outpatient International Account Manager: Dr. Sanna Padilla Planned surveillance: Routine OB care, Return to [facility] on 09.15.19. testing to begin at 32w unless warranted earlier at [facility]. Delivery location, mode, and GA: Anticipate delivery at [facility], [place] , FT Genetics note: genetic diagnostic testing was not performed. Pt did have non-invasive testing (NIPT) which was high risk for trisomy 21; however, NIPT is not diagnostic. Patient desires karyotype to be performed on cord blood at the time of delivery. Please draw at least 3cc cord blood in green top sodium heparin tube. If after office hours, on a weekend or a holiday, please hold in refrigerator in sendout laboratory and call the genetic counselors at [phone], [phone], or [phone] to notify that specimen is ready for sendout. Order can be placed by genetic counselor in baby's chart at that time. Please request Genetics consult postnatally by calling the Genetics office at [phone] prior to ordering genetic studies. Manager Store Concerns: 07/28/19- Patient with a history of anxiety- does take Sertraline Care plan based on evaluation and is subject to change based on assessment. See Images or Cardiac under Chart Review for US/ ECHO/ MRI reports. Family History Medical History Relation Name Comments Hyperlipidemia Father Hypertension Father Relation Name Status Comments Father Alive Mother Alive Social History Tobacco Use Types Packs/Day Years Used Date Smoking Tobacco: Never Smokeless Tobacco: Never Alcohol Use Standard Drinks/Week Comments No 0 (1 standard drink = 0.6 oz pur e alcohol) Comments No Sex and Gender Information Value Date Recorded Sex Assigned at Not on file Legal Sex Female 6:45 AM CDT Gender Identity Not on file Sexual Orientation Not on file Last Filed Vital Signs Vital Sign Reading Time Taken Comments Blood Pressure 124/72 06/27/2020 11:34 AM CDT Pulse 84 06/27/2020 11:34 AM CDT Temperature 36.9 C (98.5 F) 06/27/2020 11:34 AM CDT Respiratory Rate 16 06/27/2020 11:34 AM CDT Oxygen Saturation 99% 06/27/2020 11:34 AM CDT Inhaled Oxygen Concentration - - Weight 84.4 kg (186 lb) 06/27/2020 11:34 AM CDT Height 162.6 cm (5' 4) 06/27/2020 11:34 AM CDT Body Mass Index 31.93 06/27/2020 11:34 AM CDT Plan of Treatment Health Maintenance Due Date Last Done Comments HIV SCREENING 2001 HEPATITIS C SCREENING 10/07/2004 DTAP/TDAP/TD VACCINES (1 - Tdap) 2005 HEPATITIS B VACCINE (1 of 3 - 19+ 3-dose series) 2005 COVID-19 VACCINE (1 - 2023-2 5 season) 2024 DEPRESSION SCREENING 11/30/2024 INFLUENZA VACCINE (Season Ended) 2025 09/02/20 ZOSTER VACCINE (1 of 2) 2036 HIB VACCINE Aged Out No longer eligi ble based on patient's age to complete this topic HPV VACCINE Aged Out No longer eligi ble based on patient's age to complete this topic MENINGOCOCCAL (Group B) VACC INE SHARED DECISION-MAKING Aged Out No longer eligibl e based on patient's age to complete this topic MENINGOCOCCAL GROUPS A/C/Y/W VACCINE Aged Out No longer eligible b ased on patient's age to complete this topic PNEUMOCOCCAL VACCINE Aged Out No long er eligible based on patient's age to complete this topic Insurance [facility] MEDICAID - OUT OF [facility] Advance Directives Documents on File Type Date Recorded Patient Circus Hand Expl anation Adv Directive/Living Will/POA 04/13/2017 Care Teams Mission Support Specialist Relationship Specialty Start Date End Date Johnson Silver DO PCP - General Internal Medicine 04/13/17
--- OUTSIDE RECORDS SUMMARY | 2025-04-27 21:56 | XMS_ITS | Clinical Summary ---
Author Organization [facility] Address [address] [place] [address] Phone Care Team Providers Care Aerologist Name Role Phone Johnson Silver DO Primary Care Provider Allergies Active Allergy Reactions Criticality Noted Date Comments Erythromycin Other (see Comments) 05/24/2021 Cephalexin Other (see Comments) 05/24/2021 Sulfamethoxazole-Trimethoprim Other (see Comments) 05/24/2021 Medications Fexofenadine HCl (JULI PO) Take by mouth. Activ e ofloxacin (FLOXIN) 0.3 % Solution 1 Active Vit-Fe Fumarate-FA ( VITAMIN PO) Take by mouth. Act rosalba clotrimazole (LOTRIMIN) 1 % SolutionIndicat ions:Otomycosis of right ear Apply twice daily to ears for 14 days 10 mL 1 Active Additional Information Patient not taking.Reported on 04/02/2022 Cetirizine HCl (ZYRTEC PO) Take by mouth. Act rosalba albuterol (ProAir HFA) 108 (90 Base) MCG/ACT Aerosol SolutionIndicat ions:Acute cough take 2 Puffs by inhalation every 4 hours as needed for Wheezing or Cough. 18 g 2 Active Active Problems No known active problems Social History Tobacco Use Types Packs/Day Years Used Date Smoking Tobacco: Never Smokeless Tobacco: Never Comments Unknown Sex and Gender Information Value Date Recorded Sex Assigned at Not on file Legal Sex Female 8:42 AM CDT Gender Identity Not on file Sexual Orientation Not on file Last Filed Vital Signs Vital Sign Reading Time Taken Comments Blood Pressure 132/68 04/02/2022 9:38 AM CDT Pulse 100 04/02/2022 9:38 AM CDT Temperature 36.9 C (98.5 F) 04/02/2022 9:38 AM CDT Respiratory Rate 20 04/02/2022 9:38 AM CDT Oxygen Saturation 99% 04/02/2022 9:38 AM CDT Inhaled Oxygen Concentration - - Weight 86.2 kg (190 lb) 04/02/2022 9:38 AM CDT Height - - Body Mass Index - - Plan of Treatment Health Maintenance Due Date Last Done Comments Hepatitis C Virus (HCV) Screening 1986 TdaP Immunization 1986 Hepatitis B Immunization (1 of 3 - 19+ 3-dose series) 2005 Influenza Immunization (#1) 2024 SARS-COV-2 Immunization (2023- season) 2024 08/08/2021, 01/10/2021 Respiratory Syncytial Virus (RSV) Immunization (Adult) (1 - 1-dose 75+ series) 2061 Meningococcal Immunization (ACWY) Aged Out No longer eligible b ased on patient's age to complete this topic Pneumococcal Immunization Combined Aged Out No longer eligible b ased on patient's age to complete this topic Rotavirus Immunization Aged Out No lo nger eligible based on patient's age to complete this topic Insurance [facility] Care Teams Aerologist Relationship Specialty Start Date End Date Johnson Silver DO [address] [facility] [place] [address] PCP - General Internal Medicine 05/24/21
[2025-04-27 22:14] LABS: Basophils Absolute Auto 0.1 K/mm3 (0.0-0.1); Basophils Percent Auto 0.6 % (0.2-1.2); Eosinophils Absolute Auto 0.3 K/mm3 (0-0.3); Hematocrit 42.5 % (37.0-47.0); Hemoglobin 13.6 g/dL (12.0-15.0); Immature Granulocyte Absolute 0.03 K/mm3 (0.00-0.031); Immature Granulocyte Percent A 0.2 % (0-0.5); Lymphocytes Absolute Auto 4.44 K/mm3 (0.9-3.2); Lymphocytes Percent Auto 35.6 % (18.3-44.2); Mean Corpuscular Hemoglobin 28.2 pg (26-34); Mean Corpuscular Volume 88.2 fl (80-100); Mean Platelet Volume 8.5 fl (7.4-10.4); Neutrophils Absolute Auto 6.7 K/mm3 (1.3-6.7); Neutrophils Percent Auto 53.6 % (45.5-73.1); Platelet Count Result 407 k/mm3 (150-375); Red Blood Count 4.82 M/mm3 (4.2-5.4); Red Cell Distribution Width 12.9 % (11.5-14.5); White Blood Count 12.5 K/mm3 (4.5-10.0)
[2025-04-27 22:26] LABS: INR 0.9; Prothrombin Time 12.5 Seconds (11.1-14.7)
[2025-04-27 22:27] LABS: Partial Thromboplastin Time 27.7 Seconds (22.3-36.8)
[2025-04-27 22:30] LABS: Alanine Aminotransferase 19 U/L (6-35); Alkaline Phosphatase 62 U/L (38-126); Anion Gap 12 mmol/L (4-12); Aspartate Amino Transferase 41 U/L (14-36); Blood Urea Nitrogen 17 mg/dL (7-17); Calcium 9.5 mg/dL (8.4-10.2); Carbon Dioxide 25 mmol/L (22-30); Chloride 102 mmol/L (98-107); Estimated CRCL calculation 99 ml/min; Estimated Glomerular Filt Rate > 60; Glucose 99 mg/dL (65-110); Lipase 135 U/L (23-300); Potassium 3.7 mmol/L (3.4-5.0); Sodium 139 mmol/L (137-145)
[2025-04-27 22:40] LABS: Troponin I < 0.012 ng/mL (0.000-0.034)
--- OUTSIDE RECORDS SUMMARY | 2025-04-27 23:17 | XMS_ITS | Clinical Summary ---
Author Organization [facility] [address] Address [address] [place] [address] Care Team Providers Care Plant Operations Manager Name Role Phone Johnson Silver DO Primary Care Provider [phone] Allergies Active Allergy Reactions Criticality Noted Date Comments Cephalexin Erythromycin Unknown 11/28/2020 Sulfamethoxazole-Trimethoprim Medications cholecalciferol (VITAMIN D-3) 50,000 unit capsule TAKE 1 CAPSULE BY MOUTH WEEKLY 3 Active buPROPion XL (WELLBUTRIN XL) 300 mg 24 hr tablet Take 1 tablet (300 mg total) by mouth daily Active albuterol HFA (PROVENTIL HFA,VENTOLIN HFA,PROAIR HFA) 90 mcg/actuation inhaler Inhale 2 puffs every 6 (six) hours as needed for wheezing 1 each 5 01/27/20 26 Active inhalational spacing device (Aerochamber MV) spacer Use with albuterol inhaler 1 each 5 Active Active Problems Problem Noted Date Diagnosed Date SVT (supraventricular tachycardia) 09/27/2024 Ventricular tachycardia 09/27/2024 Syncope and collapse 06/30/2024 Sleep-disordered breathing 10/23/2020 Hypertrophy of tonsils 10/23/2020 Depression screening 06/16/2019 Overview (01/25/2024): 06/16/2019 Liz Odom was screened for depression using the [place] Depression Scale (EPDS) at her [facility] initial evaluation on 06/16/2019. Her initial score at baseline was 3. Based off of her score of 3, Liz does not warrant follow up. Patient will continue to be screened throughout , at intervals no closer than two weeks, for continued surveillance and early identification of depression until delivery. Patient reports mental health history. Diagnosis of anxiety. 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 Encounters Date Type Department Care Team Description 01/27/2025 3:25 PM WIRE BOUND BOX MACHINE OPERATOR Ancillary Procedure [facility] at [address] [address] Tachycardia; Acute cough 01/27/2025 3:00 PM WIRE BOUND BOX MACHINE OPERATOR Office Visit [facility] at [address] [address] Evita Cavazos NP Elevated blood pressure reading in office without diagnosis of hypertension (Primary Dx); Acute cough; Tachycardia 01/27/2025 Results Follow-Up [facility] at [address] [address] Evita Cavazos NP XR Chest PA Lateral 2 Views from Last 3 Months Surgical History Surgery Date Site/Laterality Comments SD COLPOSCOPY CERVIX UPPER/ADJACENT VAGINA 11/30/2007 - 11/29/2008 Colposcopy - 2007 (Added by TW Conv) LOOP ELECTROSURGICAL EXCISION PROCEDURE 11/30/2007 - 11/29/2008 Cervical Loop Electrosurgical Excision (LEEP) - (Added by TW Conv) NOSE SURGERY 11/30/2008 - 11/29/2009 Removed bump TONSILLECTOMY Medical History Medical History Date Comments 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 Motion sickness Family History Medical History Relation Name Comments Hypertension Father Hypertension - (Added by TW Conv) Anesthesia problems Neg Hx Relation Name Status Comments Father Social History Tobacco Use Types Packs/Day Years Used Date Smoking Tobacco: Never Smokeless Tobacco: Never Alcohol Use Standard Drinks/Week Comments Yes 1 (1 standard drink = 0.6 oz pur e alcohol) Comments No Sex and Gender Information Value Date Recorded Sex Assigned at Not on file Legal Sex Female 2:38 AM WIRE BOUND BOX MACHINE OPERATOR Gender Identity Not on file Sexual Orientation Not on file Obstetrics History Last Filed Vital Signs Vital Sign Reading Time Taken Comments Blood Pressure 136/92 01/27/2025 3:20 PM WIRE BOUND BOX MACHINE OPERATOR Pulse 88 01/27/2025 3:20 PM WIRE BOUND BOX MACHINE OPERATOR Temperature 36.7 C (98 F) 01/27/2025 3:11 PM WIRE BOUND BOX MACHINE OPERATOR Respiratory Rate 20 01/27/2025 3:11 PM WIRE BOUND BOX MACHINE OPERATOR Oxygen Saturation 98% 01/27/2025 3:20 PM WIRE BOUND BOX MACHINE OPERATOR Inhaled Oxygen Concentration - - Weight 81.2 kg (179 lb) 01/27/2025 3:11 PM WIRE BOUND BOX MACHINE OPERATOR Height 162.6 cm (5' 4) 09/27/2024 2:55 PM CDT Body Mass Index 30.73 09/27/2024 2:55 PM CDT Plan of Treatment Health Maintenance Due Date Last Done Comments Cervical Cancer Screening 1986 Depression Screening 1986 Hepatitis C Screening 1986 Varicella Vaccines (1 of 2 - 13+ 2-dose series) 1999 Hepatitis B Screening 2004 Regular Well Visit/Exam 18-64 2004 Influenza Vaccine (Season Ended) 2025 08/15/2019, 09/30/2014, 08/30/2014 DTaP/Tdap/Td Vaccine (3 - Td or Tdap) 08/15/2029 08/15/2019, 06/26/2016 HPV Vaccines Aged Out No longer eligi ble based on patient's age to complete this topic Pneumococcal vaccine <65 Aged Out No longer eligible based on patient's age to complete this topic Procedures Procedure Name Priority Date/Time Associated Diagnosis Comments XR CHEST PA LATERAL 2 VIEWS Schedule ELIUD, Read ELIUD (Appt Today, Awaiting Results) 01/27/2025 3:30 PM WIRE BOUND BOX MACHINE OPERATOR Tachycardia Acute cough from Last 3 Months Results * XR Chest PA Lateral 2 Views (01/27/2025 3:30 PM WIRE BOUND BOX MACHINE OPERATOR) Anatomical Region Laterality Modality Body, Chest N/A Digital Radiogra phy 01/27/2025 6:06 PM WIRE BOUND BOX MACHINE OPERATOR Narrative 01/27/2025 6:06 PM WIRE BOUND BOX MACHINE OPERATOR EXAM DESCRIPTION: XR CHEST PA LATERAL 2 VIEWS REASON FOR STUDY: cough, pain Pt complains of cough intermittently about two weeks ago. No surgery to heart, lungs, or chest. Non-smoker. Right bundle branch block history. TECHNIQUE: 2 radiographic view(s) of the chest. COMPARISON: 01/25/2024 FINDINGS: LUNGS: No focal opacity, pleural effusion, or pneumothorax. HEART/MEDIASTINUM: Cardiac silhouette normal in size. Mediastinal and hilar contours appear normal. LINES/TUBES: None. BONES: No acute osseous abnormality. IMPRESSION: No acute cardiopulmonary abnormality. THIS IS AN ELECTRONICALLY VERIFIED FINAL REPORT 01/27/2025 6:06 PM - Electronically signed by Olu DANIELS T: Report ID: [id number] Reading Location: [id number] Procedure Note Olu Almodovar MD - 01/27/2025 EXAM DESCRIPTION: XR CHEST PA LATERAL 2 VIEWS REASON FOR STUDY: cough, pain Pt complains of cough intermittently about two weeks ago. No surgery toheart, lungs, or chest. Non-smoker. Right bundle branch block history. TECHNIQUE: 2 radiographic view(s) of the chest. COMPARISON: 01/25/2024 FINDINGS: LUNGS: No focal opacity, pleural effusion, or pneumothorax. HEART/MEDIASTINUM: Cardiac silhouette normal in size. Mediastinal andhilar contours appear normal. LINES/TUBES: None. BONES: No acute osseous abnormality. IMPRESSION: No acute cardiopulmonary abnormality. THIS IS AN ELECTRONICALLY VERIFIED FINAL REPORT 01/27/2025 6:06 PM - Electronically signed by Olu DANIELS T: Report ID: [id number] Reading Location: [id number] Evita Cavazos NP IMG XR PROCEDURES Final Result from Last 3 Months Insurance BLUE ACCESS [place] BLUE ACCESS OOS Care Teams Plant Operations Manager Relationship Specialty Start Date End Date Johnson Silver DO PCP - General 12/11/14
--- OUTSIDE RECORDS SUMMARY | 2025-04-27 23:17 | XMS_ITS | Clinical Summary ---
Author Organization [facility] Address [address] [place] [address] Phone Care Team Providers Care Nanny/Household Manager Name Role Phone Johnson Silver DO [...] patient's age to complete this topic Insurance [facility] Care Teams Nanny/Household Manager Relationship Specialty Start Date End Date Johnson Silver DO [address] [facility] [place] [address] PCP - General Internal Medicine 05/24/21
--- OUTSIDE RECORDS SUMMARY | 2025-04-27 23:17 | XMS_ITS | Clinical Summary ---
Author Organization [facility] Address [address] [place] [address] Care Team Providers Care Mattress And Boxsprings Supervisor Name Role Phone Johnson Silver DO Primary Care Provider Source Comments [facility],non-owned Affiliates and Associated Physician Practices is amultiple site organization consisting of ambulatory clinics and hospital sitesin [place], [place], [place] and [place]. This disclosure is being madepursuant to the Care Everywhere program and may not contain all information available regarding this patient. Last updated 18.[facility] Allergies Active Allergy Reactions Criticality Noted Date [...] Diagnosed Date Depression screening - Initial at [facility] on 06.16.20 19 06/16/2019 Overview (07/28/2019): 06/16/2019 Barbie Odom was screened for depression using the [place] Depression Scale (EPDS) at her [facility] initial evaluation on 06/16/2019. Her initial score [...] from the original note were not included. [facility] PATIENT--PLEASE CALL [phone] (ex 2) IF TRIAGED OR ADMITTED Care Provider: Dr. Padilla [facility] consultants involved: RN-Raimundo; Alton-Amado; Cardiology-Patrice; Footprints-Sister Barbi Middleton; Trisomy 21 Team-Ilda Barry Diagnosis: Trisomy 21 per NIPT follow up: per Cardiology 06.16: Normal echocardiogram. Given the possibility of persistent PDA, ASD or small ventricular defects in children with Trisomy 21, would recommend follow-up echocardiogram either prior to discharge or as an outpatient Radio Adjuster: Dr. Sanna Padilla Planned surveillance: Routine OB care, Return to [facility] on 09.15.19. testing to begin at 32w unless warranted earlier at [facility]. Delivery location, mode, and GA: Anticipate delivery at [facility], hx , FT Genetics note: genetic diagnostic [...] laboratory and call the genetic counselors at [phone], [phone], or [phone] to notify that specimen is ready for sendout. Order can be placed by genetic counselor in baby's chart at that time. Please request Genetics consult postnatally by calling the Genetics office at [phone] prior to ordering genetic studies. Public Health Outreach Worker Concerns: 07/28/19- Patient with a history of [...] patient's age to complete this topic Insurance [facility] MEDICAID - OUT OF [facility] Advance Directives Documents on File Type Date Recorded Patient Glass Block Installer Expl anation Adv Directive/Living Will/POA 04/13/2017 Care Teams Mattress And Boxsprings Supervisor Relationship Specialty Start Date End Date Johnson Silver DO PCP - General Internal Medicine 04/13/17
--- OUTSIDE RECORDS SUMMARY | 2025-04-27 23:17 | XMS_ITS | Referral Summary ---
Author Organization [facility] [address] Address [address] [place] [address] Care Team Providers Care Housekeeping Laundry Worker Name Role Phone Johnson Silver DO Primary Care Provider [phone] Encounters Date Type Department Care Team Description 01/27/2025 Results Follow-Up [facility] at [address] [address] Evita Cavazos NP XR Chest PA Lateral 2 Views 01/27/2025 3:25 PM REAL ESTATE CONSULTANT Ancillary Procedure [facility] at [address] [address] Tachycardia; Acute cough 01/27/2025 3:00 PM REAL ESTATE CONSULTANT Office Visit [facility] [address] [address] Evita Cavazos NP Elevated blood pressure reading in office without diagnosis of hypertension (Primary Dx); Acute cough; Tachycardia from Last 3 Months Allergies Active Allergy Reactions Criticality Noted Date [...] needed for wheezing 1 each 5 01/27/20 Active inhalational spacing device (Aerochamber MV) spacer Use with albuterol inhaler 1 each 5 Active Active Problems Problem Noted Date Diagnosed Date SVT (supraventricular tachycardia) 09/27/2024 Ventricular tachycardia 09/27/2024 Syncope and collapse 06/30/2024 Sleep-disordered breathing 10/23/2020 Hypertrophy of tonsils 10/23/2020 Depression screening 06/16/2019 Overview (01/25/2024): 06/16/2019 Liz Odom was screened for depression using the [place] Depression Scale (EPDS) at her [facility] initial evaluation on 06/16/2019. 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 Social History Tobacco Use Types Packs/Day Years Used Date Smoking Tobacco: Never Smokeless Tobacco: Never Alcohol Use Standard Drinks/Week Comments Yes 1 (1 standard drink = 0.6 oz pur e alcohol) Comments No Sex and Gender Information Value Date Recorded Sex Assigned at Not on file Legal Sex Female 2:38 AM REAL ESTATE CONSULTANT Gender Identity Not on file Sexual Orientation Not on file Last Filed Vital Signs Vital Sign Reading Time Taken Comments Blood Pressure 136/92 01/27/2025 3:20 PM REAL ESTATE CONSULTANT Pulse 88 01/27/2025 3:20 PM REAL ESTATE CONSULTANT Temperature 36.7 C (98 F) 01/27/2025 3:11 PM REAL ESTATE CONSULTANT Respiratory Rate 20 01/27/2025 3:11 PM REAL ESTATE CONSULTANT Oxygen Saturation 98% 01/27/2025 3:20 PM REAL ESTATE CONSULTANT Inhaled Oxygen Concentration - - Weight 81.2 kg (179 lb) 01/27/2025 3:11 PM REAL ESTATE CONSULTANT Height 162.6 cm (5' 4) 09/27/2024 2:55 PM CDT Body Mass Index 30.73 09/27/2024 2:55 PM CDT Plan of Treatment Not on file Procedures Procedure Name Priority Date/Time Associated Diagnosis Comments XR CHEST PA LATERAL 2 VIEWS Schedule ELIUD, Read ELIUD (Appt Today, Awaiting Results) 01/27/2025 3:30 PM REAL ESTATE CONSULTANT Tachycardia Acute cough from Last 3 Months Results * XR Chest PA Lateral 2 Views (01/27/2025 3:30 PM REAL ESTATE CONSULTANT) Anatomical Region Laterality Modality Body, Chest N/A Digital Radiogra phy 01/27/2025 6:06 PM REAL ESTATE CONSULTANT Narrative 01/27/2025 6:06 PM REAL ESTATE CONSULTANT EXAM DESCRIPTION: XR CHEST PA LATERAL 2 [...] 6:06 PM - Electronically signed by Olu Almodovar M.D. T: Report ID: [id number] Reading Location: [id number] Procedure Note Olu Almodovar MD - 01/27/2025 [...] 6:06 PM - Electronically signed by Olu Almodovar M.D. KH T: Report ID: [id number] Reading Location: [place] [address] Evita Cavazos NP IMG XR PROCEDURES Final Result from Last 3 [place] [address] [employer] [facility] [employer] [place] [address] [place] [address] [employer] Care Teams Housekeeping Laundry Worker Relationship Specialty Start Date End Date Johnson Silver DO PCP - General 12/11/14
--- OUTSIDE RECORDS SUMMARY | 2025-04-27 23:17 | XMS_ITS | Encounter Summary ---
Author Organization [facility] Address [address] [place] [address] Phone Care Team Providers Care Business Sales Consultant Name Role Phone Johnson Silver DO Primary Care Provider Encounter Details Date Type Department Care Team (Late st Contact Info) Description 12/04/2022 Lab Requisition [facility] [address] [place] [id number] Shakeel Snowden MD [address] [place] [address] [place] [address] Encounter for screening for COVID-19 Social History [...] SARS-COV-2 BY MOLECULAR Routine 12/04/2022 9:20 AM TEXTURE ARTIST Encounter for screening for COVID-19 documented in this encounter Results * SARS-COV-2 BY MOLECULAR (12/04/2022 9:20 AM TEXTURE ARTIST) SARSCOV2 NOT DETECTED (Referen ce Range for this test is Not Detected ) [facility] THERMOFISHER FAST DX 12/05/2022 12:19 AM TEXTURE ARTIST [facility] Comment:This test was perfor med by a RT-PCR method. Other Non-Phlebotomy Collection / Unknown 12/04/2022 9:20 AM TEXTURE ARTIST 12/04/2022 11:50 AM TEXTURE ARTIST Narrative [facility] - 12/05/2022 12:19 AM TEXTURE ARTIST Authorized Fact Sheets about this test for providers and patients are available at: https://www.fda.gov/medical-devices/syidtdfbp-ssepbnzatq-qlubflz-devices/emergen -us e-authorizations us Shakeel Snowden MD MICROBIOLOGY - GENERAL ORDERAB LES Final Result [facility] [address] [place] [address], documented in this encounter Visit Diagnoses Diagnosis Encounter for screening for COVID-19 documented in this encounter Additional Health Concerns Infection Onset Date Last Indicated Resolved Time COVID - 19 12/04/2022 12/04/2022 12/14/2022 12:1 7 AM TEXTURE ARTIST documented as of this encounter Care Teams Business Sales Consultant Relationship Specialty Start Date End Date Johnson Silver DO [address] [place] [address] PCP - General Internal Medicine 05/24/21 documented as of this encounter
[2025-04-27 23:49] LABS: D Dimer < 0.27 ug/mL (<0.48)
[2025-04-28] VITALS (8 sets, daily range): BP systolic 118–123; BP diastolic 86–93; PULSE 75–92; RESP 14–20; O2SAT 98–100
--- NOTE | 2025-04-28 00:32 | ED_ITS ---
HPI - Chest Pain General Chief Complaint: Chest Pain Stated Complaint: pain with inspiration Time Seen by Provider: 04/27/25 23:08 Source: patient Mode of arrival: ambulatory Limitations: no limitations History of Present Illness HPI narrative: Patient is a 39-year-old female, with PMH of incomplete RBBB, who presents the ED with report of left-sided chest pain. Patient reports this afternoon she began having discomfort throughout her left-sided chest, under her left breast. States pain is present with deep breathing, worse with movement as well. She states symptoms persisted throughout the night and she prompted here to be evaluated. She states pain is improved currently. Denies SOB or difficulty breathing. Denies pain or swelling in legs. Denies fevers, recent cough or cold symptoms. Denies history of heart disease or blood clots. Denies any recent travel, recent immobilization/surgery, hormonal control. Related Data Home Medications ?Medication ?Instructions ?Recorded ?Confirmed ?Last Taken ?Type mecobalamin (vitamin B12) 2 tablet PO DAILY 06/09/24 06/09/24 Unknown History albuterol sulfate 90 mcg/actuation inhalation 02/07/25 Unknown History aerosol inhaler bupropion HCl 300 mg 24 hr tablet, mg PO 02/07/25 Unknown History extended release Allergies Allergy/AdvReac Type Severity Reaction Status Date / Time cephalexin Allergy Unknown Rash Verified 04/27/25 22:17 erythromycin base Allergy Unknown Rash Verified 04/27/25 22:17 sulfamethizole Allergy Unknown Rash Verified 04/27/25 22:17 sulfamethoxazole Allergy Unknown Rash Verified 04/27/25 22:17 trimethoprim Allergy Unknown Rash Verified 04/27/25 22:17 Review of Systems 2 Review of Systems: All systems reviewed & are unremarkable except as noted in HPI. All systems reviewed & are unremarkable except as noted in HPI and below PMFSH Past Medical History Medical History Screening for lipoid disorders Screening for endocrine disorder Left leg swelling Tuberculosis screening (normal spontaneous vaginal delivery) False labor Pre-syncope Sore throat Postoperative pain Incomplete Anxiety COVID-19 Depression Tonsillar hypertrophy MARK ANTHONY (obstructive sleep apnea) Snoring Surgical History Surgical History Hx of tonsillectomy Family History Family History Mother Hypertension Daughter Down's syndrome Father Hypertension Social History Social History Smoking status: Never smoker Alcohol intake: never Substance use: never Substance use type: does not use Living arrangements: with family Spiritual care concerns: No Exam 2 Narrative: GENERAL: Well appearing, obese with BMI of 30.3, non-toxic, in no acute distress. HEAD: Normocephalic, atraumatic. RESPIRATORY: Airway patent, respirations nonlabored. Clear to auscultation bilaterally, no rales, rhonchi, wheezing. CARDIOVASCULAR: Regular rate and rhythm without murmurs, rubs, or gallops. ABDOMINAL: Soft, nontender, nondistended. Normoactive BS. MUSCULOSKELETAL: Moves all extremities. No gross deformities. No significant focal chest wall tenderness to palpation. No peripheral edema or calf tenderness. SKIN: Warm, dry, normal color. NEURO: A&O X3. Speech clear. Cranial nerves II-XII grossly intact. Steady gait. No ataxic movements. PSYCHIATRIC: Appropriate mood and affect. Normal interaction. Course Vital Signs Vital signs: Vital Signs Temperature 98.1 F 04/27/25 22:10 Pulse Rate 90 04/27/25 22:10 Respiratory Rate 20 04/27/25 22:10 Blood Pressure 150/96 H 04/27/25 22:10 Pulse Oximetry 100 04/27/25 22:10 Oxygen Delivery Room Air 04/27/25 22:10 Temperature 98.1 F 04/27/25 22:10 Pulse Rate 75 04/28/25 02:00 Respiratory Rate 14 04/28/25 02:00 Blood Pressure 123/93 H 04/28/25 00:45 Pulse Oximetry 99 04/28/25 00:46 Oxygen Delivery Room Air 04/27/25 23:15 MDM - Chest Pain MDM Narrative Medical decision making narrative: EKG with sinus rhythm, incomplete right bundle, which is known to patient. No concerning ischemic changes. Troponin negative x2. Chest x-ray is clear D-dimer within normal range. Remainder basic laboratory studies are otherwise fairly unremarkable. HEART score =1 based on bmi, no other significant RFs for CAD Discussed overall reassuring workup with patient. Very low suspicion for ACS at this time. Suspect musculoskeletal etiology, costochondritis versus pleurisy. Discussed management of such. Recommended that patient continue Tylenol/ibuprofen as needed for pain. Recommended follow-up as outpatient with Cardiology. She does see Dr. Mendes. Given strict return precautions should symptoms worsen. Patient voiced understanding. She feels comfortable going home. Discharged in stable condition. Medical Records Data Attestation: I reviewed the patient's medical records. Lab Data Attestation: I reviewed the patient's lab results. 04/27/25 22:06 04/27/25 22:06 Labs: Lab Results 04/27/25 04/28/25 Range/Units 22:06 01:01 WBC 12.5 H (4.5-10.0) K/mm3 RBC 4.82 (4.2-5.4) M/mm3 Hgb 13.6 (12.0-15.0) g/dL Hct 42.5 (37.0-47.0) % MCV 88.2 (80-100) fl MCH 28.2 (26-34) pg MCHC 32.0 (32-36) g/dl RDW 12.9 (11.5-14.5) % Plt Count 407 H (150-375) k/mm3 MPV 8.5 (7.4-10.4) fl Immature Gran % (Auto) 0.2 (0-0.5) % Neut % (Auto) 53.6 (45.5-73.1) % Lymph % (Auto) 35.6 (18.3-44.2) % Rock % (Auto) 8.0 (2.6-8.5) % Eos % (Auto) 2.0 (0-4.4) % Baso % (Auto) 0.6 (0.2-1.2) % Lymph # (Auto) 4.44 H (0.9-3.2) K/mm3 Rock # (Auto) 1.0 H (0.1-0.6) K/mm3 Eos # (Auto) 0.3 (0-0.3) K/mm3 Baso # (Auto) 0.1 (0.0-0.1) K/mm3 Abs Immat Gran (auto) 0.03 (0.00-0.031) K/mm3 Absolute Neuts (auto) 6.7 (1.3-6.7) K/mm3 Absolute Nucleated RBC 0.000 (0.0-0.012) K/mm3 Nucleated RBC % 0.0 (0.0-0.2) % PT 12.5 (11.1-14.7) Seconds INR 0.9 APTT 27.7 (22.3-36.8) Seconds D-Dimer < 0.27 (<0.48) ug/mL Sodium 139 (137-145) mmol/L Potassium 3.7 (3.4-5.0) mmol/L Chloride 102 (98-107) mmol/L Carbon Dioxide 25 (22-30) mmol/L Anion Gap 12 (4-12) mmol/L BUN 17 (7-17) mg/dL Creatinine 0.68 L (0.7-1.0) mg/dL Estim Creat Clear Calc 99 ml/min Estimated GFR > 60 (59 - ) Glucose 99 (65-110) mg/dL Calcium 9.5 (8.4-10.2) mg/dL Total Bilirubin 1.0 (0.2-1.3) mg/dL AST 41 H (14-36) U/L ALT 19 (6-35) U/L Alkaline Phosphatase 62 (38-126) U/L Troponin I < 0.012 < 0.012 (0.000-0.034) ng/mL Total Protein 9.0 H (6.3-8.2) g/dL Albumin 5.0 (3.5-5.1) g/dL Lipase 135 (23-300) U/L Imaging Data Attestation: I personally reviewed and interpreted this imaging study as follows: Radiologist's impression: ITS Impressions Chest X-Ray 04/27/25 23:02 IMPRESSION: No acute cardiopulmonary pathology. ECG Data EKG #1: Attestation: I personally reviewed and interpreted this ECG as follows: ECG completion date: 04/27/25 ECG completion time: 22:00 EKG Interpretation: tachycardia (102), sinus rhythm, non-specific ST changes and RBBB (Incomplete) Discharge Plan Discharge Clinical Impression: Atypical chest pain Patient Disposition: Home Condition: Stable Instructions: Antibiotic Form, Chest Pain (ED), Pleurisy (ED), Costochondritis (ED), Chest Wall Pain (ED) Additional Instructions: Your workup here was reassuring against a cardiac cause of your chest pain. Recommend continuing Tylenol/ibuprofen as needed for pain. Follow-up with your primary care doctor and/or director of operations for therapy for further evaluation. Return to the ED if you experience worsening or severe pain, difficulty breathing or feeling short of breath, unable to keep down food or drink, coughing blood, pain or swelling in legs, persistent fevers, or any other symptoms of concern. Patient Language: Azeri Prescriptions: No Action albuterol sulfate 90 mcg/actuation HFA aerosol inhaler INHALATION bupropion HCl 300 mg tablet extended release 24 hr PO amoxicillin-pot clavulanate 875-125 mg tablet 1 tablet PO Q12H 10 Days Qty: 20 0RF prednisone 20 mg tablet 40 mg PO DAILY 5 Days Qty: 10 0RF mecobalamin (vitamin B12) 2 tablet PO DAILY cholecalciferol (vitamin D3) 1,250 mcg (50,000 unit) tablet 1,250 mcg PO WEEKLY Qty: 8 1RF Follow-up/Referrals: Johnson Silver DO [Primary Care Provider] - Time of Disposition: 02:06 Quality HEART score for chest pain patients History: slightly suspicious ECG: normal Age: < or = to 45 years Risk factors: 1 or 2 risk factors Troponin: < or = to 1x normal limit Heart score: 1
--- NOTE | 2025-04-28 00:57 | ECG_ITS ---
Test Date: 2025-04-28 01:02:32 Measurements Intervals Diana Rate: 86 P: 43 UT: 178 QRS: 35 QRSD: 89 T: 30 QT: 362 QTc: 435 Interpretive Statements SINUS RHYTHM Compared to ECG 04/27/2025 22:00:27 Sinus tachycardia no longer present Incomplete right bundle-branch block no longer present Electronically Signed On 04-28-2025 15:05:27 CDT by Renee Howard M.D.
[2025-04-28 01:27] LABS: Troponin I < 0.012 ng/mL (0.000-0.034)
[2025-04-28] MEDS: KETOROLAC (*BKC) 60 MG/2 ML VIAL IM (01:40)
== END 2025-04-28 02:15 | disposition home or self-care (01) ==
PROVIDERS: Student in an Organized Health Care Education/Training Program; Emergency Provider Physician Assistant; PCP Internal Medicine
DX: R07.89 Other chest pain (principal); G47.33 Obstructive sleep apnea (adult) (pediatric); F41.9 Anxiety disorder, unspecified; F32.A Depression, unspecified; Z86.16 Personal history of COVID-19; Z79.899 Other long term (current) drug therapy; R00.0 Tachycardia, unspecified; R94.31 Abnormal electrocardiogram [ECG] [EKG]; I45.10 Unspecified right bundle-branch block
CPT/HCPCS: 36415; 71046; 80053; 83690; 84484; 85025; 85380; 85610; 85730; 93005; 96372; 99284; J1885